=== PATIENT | male | born 1945 | race Caucasian/White ===

== ENCOUNTER 2022-05-13 14:38 | Outpatient (REF) | payer MEDICARE, SELFPAY ==
[2022-05-13 15:13] LABS: COVID-19 Test Positive (Negative)
== END 2022-05-13 14:39 | disposition home or self-care (01) ==
LOC: HO.LAB 14:38
PROVIDERS: Visit Provider Internal Medicine
DX: Z20.822 Contact with and (suspected) exposure to COVID-19 (principal)
CPT/HCPCS: 87635; C9803

== ENCOUNTER 2022-05-22 15:19 | Outpatient (REF) | payer MEDICARE, SELFPAY ==
[2022-05-22 16:20] LABS: COVID-19 Test Positive (Negative); IDNOW Serial# 16C4AD1C
== END 2022-05-22 15:20 | disposition home or self-care (01) ==
LOC: HO.LAB 15:19
PROVIDERS: Visit Provider Internal Medicine
DX: Z20.822 Contact with and (suspected) exposure to COVID-19 (principal)
CPT/HCPCS: 87635; C9803

== ENCOUNTER 2022-12-07 19:23 | Emergency (ER) | payer MEDICARE, SELFPAY ==
--- NOTE | ~2022-12-07 | XR_ITS ---
EXAMINATION: RIGHT ANKLE 2 VIEWS AND RIGHT FOOT 3 VIEWS CLINICAL INFORMATION: Pain status post injury COMPARISON: None TECHNIQUE: As above nonweightbearing FINDINGS: Notable soft tissue swelling laterally about the ankle. No underlying fracture. Ankle mortise anatomic. Subtalar joint intact. Acute nondisplaced fracture at the base of the fifth metatarsal bone which is intra-articular. No additional fractures. XR/XR ankle RT 2V IMPRESSION: Acute nondisplaced fracture base of the fifth metatarsal bone. Appearance is consistent with a peroneus brevis tendon avulsion injury.
--- NOTE | ~2022-12-07 | XR_ITS ---
EXAMINATION: RIGHT ANKLE 2 VIEWS AND RIGHT FOOT 3 VIEWS CLINICAL INFORMATION: Pain status post injury COMPARISON: None TECHNIQUE: As above nonweightbearing FINDINGS: Notable soft tissue swelling laterally about the ankle. No underlying fracture. Ankle mortise anatomic. Subtalar joint intact. Acute nondisplaced fracture at the base of the fifth metatarsal bone which is intra-articular. No additional fractures. XR/XR foot RT 2V IMPRESSION: Acute nondisplaced fracture base of the fifth metatarsal bone. Appearance is consistent with a peroneus brevis tendon avulsion injury.
--- NOTE | 2022-12-07 19:27 | ED.LOWEXIN ---
HPI - Extremity Injury (Lower) General Chief Complaint: Extremity Injury, Lower Stated Complaint: right foot inj Time Seen by Provider: 12/07/22 19:48 Source: patient Mode of arrival: ambulatory Limitations: no limitations History of Present Illness HPI Narrative: 77-year-old male with history of high cholesterol, BPH who presents to the emergency room with complaints of right-sided foot pain which happened from an injury last night. Patient reports he went to pick something up off the ground and lost his balance causing an inversion injury of his right foot. No head strike or loss consciousness. Since then patient reports pain over the foot which is worsened with weight-bearing. No weakness, numbness or tingling. MD complaint: ankle injury and foot injury Related Data Allergies Allergy/AdvReac Type Severity Reaction Status Date / Time Seasonal Allergies Allergy Runny Nose Verified 12/07/22 19:33 Review of Systems Review of Systems: Yes all other systems are reviewed and are negative Constitutional: Constitutional: Reports no additional constitutional complaints, Denies body ache(s), Denies chills, Denies fever(s), Denies headache(s) and Denies weakness Eyes: Eyes: Reports no additional eye complaints and Denies change in vision ENT: Reports system reviewed and no additional complaints, except as documented, Denies dizziness, Denies headache(s), Denies nasal congestion, Denies nasal discharge and Denies neck pain Cardiovascular: Cardiovascular: Reports no additional cardiovascular complaints, Denies chest pain, Denies leg edema and Denies dyspnea Respiratory: Respiratory: Reports no additional respiratory complaints, Denies cough and Denies dyspnea Gastrointestinal: Gastrointestinal: Reports no additional gastrointestinal complaints, Denies abdominal pain, Denies diarrhea, Denies nausea and Denies vomiting Genitourinary: Genitourinary: Denies urinary incontinence Musculoskeletal: Musculoskeletal: Reports no additional musculoskeletal complaints, Denies back pain, Reports arthralgias, Reports joint swelling, Denies neck pain, Denies numbness and Denies tingling Integumentary/Breasts: Skin/Breast: Reports system reviewed and no additional complaints, except as docu and Denies rash Neurologic: Reports system reviewed and no additional complaints, except as documented, Denies Abnormal speech present, Denies dizziness, Denies headache(s), Denies numbness, Denies tingling and Denies weakness [facility] Past Medical History Attestation statement: The following information was validated with the patient. Source: old records reviewed and nursing notes reviewed Social History Social History Advance Directives: No Advance Directives Information Provided: No Physical Exam Vital Signs: Vital Signs: Last Vital Signs Temp 98.2 F 12/07/22 20:27 Pulse 93 12/07/22 20:27 Resp 16 12/07/22 20:27 BP 124/73 12/07/22 20:27 Pulse Ox 95 12/07/22 20:27 O2 Del Method 12/07/22 20:27 BMI result Body Mass Index 19.3 Const: General: cooperative, healthy appearing, comfortable and no acute distress Orientation/consciousness: patient oriented x3 Limitations: no limitations HEENT: Head: Yes normal to inspection Ears: hearing grossly normal bilaterally General nose exam: Normal external nose present Face and sinus: Yes normal facial exam Mouth: Normal oral and palatal mucosa present Throat: Yes posterior oropharynx normal Eyes: General: appearance normal, both eyes and all related structures Pupils: Equal, round and reactive pupils present Neck: Neck: Yes normal visual inspection Chest: Chest palpation & inspection: normal inspection of the chest Resp: Effort & Inspection: normal respiratory effort Auscultation: clear to auscultation bilaterally Cardio: Rate: regular rate Rhythm: regular rhythm Peripheral pulses: Peripheral pulses 2+ throughout GI: Inspection: Yes normal to inspection Palpation (GI): Soft to palpation and nontender Auscultation: normal bowel sounds Back/Spine/Pelvis: Thoracic/Lumbar Spine: thoracic and lumbar spine normal to inspection Skin: General skin exam: no rashes or lesions noted Neuro: General: patient oriented x3, no focal motor deficits and normal sensation to monofilament Cranial nerves: Yes Equal, round and reactive pupils present Cognition (Neuro): normal cognition Speech: No Abnormal speech present Gait exam (Neuro): Normal gait present Motor exam (neuro): 5/5 motor strength present throughout Extrem: Other: Patient with ecchymosis, swelling, tenderness over the right 5th metatarsal at the base and over the lateral ankle. Full range of motion of the ankle and foot. Palpable DP and PT pulses. Sensation is intact distally. General: Yes normal to inspection Course Course Course Narrative: This is a rapid medical exam. Deferred additional HPI, ROS, PE to primary provider. 77 yo male with history of HLD, BPH, insomnia here with right ankle/foot pain. Patient report he lost his balance last night to avoid something on the ground but had an inversion injury of the right ankle/foot. No head strike or LOC. Now here with pain which is weight bearing. Will check x-rays of right foot and ankle. VSS Medical Decision Making Medical Decision Making MDM Narrative: 77-year-old male here with inversion injury of the right lower extremity which occurred last night during a fall. Patient with significant bruising and swelling over the 5th metatarsal on the right side. Will check x-rays to rule out fracture. 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 Discussed case with orthopedics on-call Pili who recommended walking boot with weight-bearing as tolerated Independent Interpretation I performed an independent interpretation of an: Plain X-Ray Interpretation: I independently reviewed the x-ray-right 5th metatarsal fracture at the base Radiology Impression Discussion of test interpretation with radiology: I have reviewed the radiologist's reading. Radiologist Impression: [address] [address] XRay Report Signed Patient: Josh Croft III MR#: [id number] : 1945 Acct:[id number] Age/Sex: 77 / M ADM Date: 12/07/22 Loc: HO.ED Attending Dr: Ordering Physician: Akiko Singh NP Date of Service: 12/07/22 Procedure(s): XR ankle RT 2V Accession Number(s): [id number] cc: Akiko Singh NP~ EXAMINATION: RIGHT ANKLE 2 VIEWS AND RIGHT FOOT 3 VIEWS CLINICAL INFORMATION: Pain status post injury? COMPARISON: None? TECHNIQUE: As above nonweightbearing? FINDINGS: Notable soft tissue swelling laterally about the ankle. No underlying fracture. Ankle mortise anatomic. Subtalar joint intact. Acute nondisplaced fracture at the base of the fifth metatarsal bone which is intra-articular. No additional fractures.? XR/XR ankle RT 2V IMPRESSION: Acute nondisplaced fracture base of the fifth metatarsal bone. Appearance is consistent with a peroneus brevis tendon avulsion injury. Procedures Procedure Narrative Procedure Narrative: Orthopedic walking boot Discharge Plan Discharge Clinical Impression: Closed fracture of fifth metatarsal bone Patient Disposition: Home, Self-Care Instructions: Foot Fracture in Adults (ED) Additional Instructions: Use the boot when doing any walking Elevate, ice Take Motrin or Tylenol if able for any pain Follow-up with orthopedic Referrals: [facility] Orthopedic Surgeons [Provider Group] - 1 week
[2022-12-07 19:29] VITALS: BP 105/72; PULSE 82; RESP 16; TEMP 36.8; O2SAT 99; BMI 19.3
--- OUTSIDE RECORDS SUMMARY | 2022-12-07 20:18 | XMS_ITS | Continuity of Care Document ---
:1945 Author Organization [facility] Adult Address [address] [place] [address]- Care Team Providers Name Role Phone Leesa MURILLO, Gomez Tenorio Primary Care Physician Encounter [facility] Date(s): 01/16/21 - 02/15/21 [facility] [address] [place] [address]- Referring Physician: Ave Gr[address] Allergies, Adverse Reactions, Alerts Substance Reaction Severity Status NKA Active Immunizations Given and Recorded Vaccine Date Status Refusal Reason SARS-CoV-2 (COVID-19) mRNA BNT-162b2 vac 12/13/20 Recorde d SARS-CoV-2 (COVID-19) mRNA BNT-162b2 vac 11/22/20 Recorde d Influenza Virus Vaccine (oldterm) 07/07/20 Recorded Influenza Virus Vaccine (oldterm) 08/20/19 Recorded Influenza Virus Vaccine (oldterm) 06/20/18 Recorded zoster vaccine, inactivated 04/07/19 Recorded Zoster Vaccine Live 01/06/19 Recorded influenza virus vaccine, inactivated 08/05/17 Recorded influenza virus vaccine, inactivated 07/13/16 Recorded influenza virus vaccine, inactivated 08/03/15 Recorded pneumococcal 13-valent vaccine 10/03/15 Given Tetanus Toxoid 12/08/13 Recorded Zostavax (oldterm) 12/02/12 Recorded pneumococcal 23-valent vaccine 01/03/12 Recorded Medications Acidophilus Probiotic Blend oral capsule 1 capsule, By Mouth, Daily, 0 Refills, Maintenance, 10/03/15 15:28:16 Start Date: 10/03/15 Status: Orderedcetirizine 10 mg oral capsule 1 capsule = 10 mg, By Mouth, Daily, PRN for allergy symptoms, # 40 capsule, 0 Refills, Maintenance, 03/16/20 11:13:00 EDT, Capsule Start Date: 03/16/20 Status: Ordereddiclofenac 3% topical gel 1 application, Topically, 2 times a day, # 100 Gm, 1 Refills, Maintenance, 01/05/21 9:32:00 EDT, Gel, [facility] # [facility], Partial fill upon patient request if the prescription is for a schedule II opioid drug., 1 application Topically 2 times a day,... Start Date: 01/05/21 Status: OrderedDiphenhist 25 mg oral tablet 1 tablet = 25 mg, By Mouth, Daily at bedtime, PRN for insomnia, # 30 tablet, 0 Refills, Maintenance,07/02/16 9:08:20, Tablet Start Date: 07/02/16 Status: Orderedfamotidine 20 mg oral tablet 20 mg, 1, tablet, By Mouth, 2 times a day, # 60 tablet, Refills 1, Tot. Refills 1, Maintenance, 01/05/21 9:31:00 EDT, Route to Pharmacy Electronically, [facility] # [facility], Partial fill upon patient request if the prescription is for a schedule II opi... Start Date: 01/05/21 Status: OrderedFluticasone Nasal Daily, 0 Refills, Maintenance, 10/03/15 12:00:15 Start Date: 10/03/15 Status: OrderedGlucosamine By Mouth, 0 Refills, Maintenance, 10/03/15 15:29:17 Start Date: 10/03/15 Status: OrderedLORazepam 0.5 mg oral tablet 1 tablet = 0.5 mg, By Mouth, Daily at bedtime, PRN INSOMNIA, # 30 tablet, 5 Refills, Soft Stop, 09/27/20 8:00:00 EST, [facility], 176.5, cm, 09/25/20 15:01:00 EST, Height Start Date: 09/27/20 Status: Orderedmeloxicam 15 mg oral tablet 1 tablet = 15 mg, By Mouth, Daily, # 14 tablet, 0 Refills, Maintenance, 01/05/21 9:31:00 EDT, Tablet, [facility] # [facility], Partial fill upon patient request if the prescription is for a schedule II opioid drug., 176.5, cm, 01/05/21 8:29:00 EDT, Height Start Date: 01/05/21 Stop Date: 01/19/21 Status: OrderedMultivitamin By Mouth, Daily, 0 Refills, Maintenance, 10/03/15 15:29:03 Start Date: 10/03/15 Status: Orderedpravastatin 40 mg oral tablet 1 tablet = 40 mg, By Mouth, Daily, # 90 tablet, 3 Refills, Maintenance, 09/25/20 15:31:00 EST, Tablet, [facility], 176.5, cm, 09/25/20 15:01:00 EST, Height Start Date: 09/25/20 Status: OrderedRestasis Every 12 hours, 0 Refills, Maintenance, 09/25/20 15:26:00 EST, Partial fill upon patient request if the prescription is for a schedule II opioid drug. Start Date: 09/25/20 Status: OrderedSystane Eyes, Both, 2 times a day, 0 Refills, Maintenance, 10/03/15 15:27:34 Start Date: 10/03/15 Status: OrderedVitamin C 500 mg oral tablet 1 tablet = 500 mg, By Mouth, Daily, 0 Refills, Maintenance, 09/25/20 15:28:00 EST, Partial fill uponpatient request if the prescription is for a schedule II opioid drug. Start Date: 09/25/20 Status: OrderedVitamin D3 400 intl units oral capsule 1 capsule = 400 International_Units, By Mouth, Daily, 0 Refills, Maintenance, 10/03/15 15:28:48 Start Date: 10/03/15 Status: Ordered Problem List Condition Effective Dates Status Health Status Informant Multiple abrasions(Confirmed) Active Actinic keratosis(Confirmed)1 Active Allergic rhinitis(Confirmed) Active Osteoarthritis cervical Active spine(Confirmed) Chronic low back pain(Confirmed) Active Dry eyes(Confirmed)2 Active Dermatitis(Confirmed) Active Family history of prostate cancer in Active father(Confirmed) H/O insomnia(Confirmed) Active H/O colonoscopy(Confirmed)3, 4 Active Hypercholesteremia(Confirmed) Active Incomplete right bundle branch Active block(Confirmed) Jaw pain(Confirmed) Active 1sees dr. sanchez yearly for skin exams.2Sees Dr. Prabhakar [id number]; repeat optional based on patient's age per Dr. [id number] 2005 normal, repeat 2014 Social History Social History Type Response Smoking Status Never smoker entered on: 03/07/16 Sex
--- OUTSIDE RECORDS SUMMARY | 2022-12-07 20:18 | XMS_ITS | Continuity of Care Document ---
:1945 Author Organization [facility] Adult Address [address] [place] [address]- Care Team Providers Name Role Phone Leesa MURILLO, Gomez Tenorio Primary Care Physician Encounter [facility] Date(s): 04/18/20 - 04/25/20 [facility] [address] [place] [address]- [facility] Attending Physician: Trell Lewis MD Allergies, Adverse Reactions, Alerts Substance Reaction Severity Status NKA Active Immunizations Given and Recorded Vaccine Date Status Refusal Reason Influenza Virus Vaccine (oldterm) 08/20/19 Recorded Influenza [...] 11:13:00 EDT, Capsule Start Date: 03/16/20 Status: OrderedDiphenhist 25 mg oral tablet 1 tablet = 25 mg, By Mouth, Daily at bedtime, PRN for insomnia, # 30 tablet, 0 Refills, Maintenance,07/02/16 9:08:20, Tablet Start Date: 07/02/16 Status: OrderedFluticasone Nasal Daily, 0 Refills, Maintenance, 10/03/15 12:00:15 Start Date: 10/03/15 Status: OrderedGlucosamine By Mouth, 0 Refills, Maintenance, 10/03/15 15:29:17 Start Date: 10/03/15 Status: OrderedLORazepam 0.5 mg oral tablet See Instructions, # 30 Unknown, Refills 5 Tot. Refills 5, TAKE 1 TABLET BY MOUTH AT BEDTIME NEEDED FOR SLEEP., [facility] Start Date: 08/04/19 Status: OrderedMultivitamin By Mouth, Daily, 0 Refills, Maintenance, 10/03/15 15:29:03 Start Date: 10/03/15 Status: Orderedpravastatin 40 mg oral tablet 1 tablet = 40 mg, By Mouth, Daily, # 90 tablet, 3 Refills, Maintenance, 02/15/20 10:37:00 EDT, Tablet, [facility], 176.5, cm, 09/13/19 11:31:00 EST, Height Start Date: 02/15/20 Status: OrderedSystane Eyes, Both, 2 times a day, 0 Refills, Maintenance, 10/03/15 15:27:34 Start Date: 10/03/15 Status: OrderedVitamin D3 400 intl units oral [...] sanchez yearly for skin exams.2Sees Dr. Prabhakar [id number]; repeat optional based on patient's age per Dr. [id number] 2005 normal, repeat 2015 Vital Signs Most recent to oldest [Reference Range]: 1 Height 176.5 cm (04/18/20 9:30 AM) Weight 58.4 kg (04/18/20 9:30 AM) Oxygen Saturation [94-100 %] 98 % (04/18/20 9:30 AM) Pulse Rate [55-90 bpm] 78 bpm (04/18/20 9:30 AM) Body Mass Index [18.5-24.99] 18.75 (04/18/20 9:30 AM) Blood Pressure [90-138/55-84 mm Hg] 110/70 mm Hg (04/18/20 9:30 AM) Temperature [96.8-100.4 DegF] 97.5 DegF (04/18/20 9:30 AM) Mode of Delivery (Oxygen) Room air (04/18/20 9:30 AM) Blood pressure sites Arm, left (04/18/20 9:30 AM) Temperature Route Oral (04/18/20 9:30 AM) Weight Obtained Via Standing scale (04/18/20 9:30 AM) Social History Social History Type Response Smoking Status Never smoker entered on: 03/07/16 Sex
--- OUTSIDE RECORDS SUMMARY | 2022-12-07 20:18 | XMS_ITS | Continuity of Care Document ---
:1945 Author Organization [facility] Address [address] [place] [id number]- Care Team Providers Name Role Phone Gomez Landers MD Primary Care Physician Encounter [facility] Date(s): 05/04/21 - 06/03/[address] [address] Attending Physician: Kamlesh Ayon Admitting Physician: AdmtrKamlesh Referring Physician: Admtr, Ar8 Allergies, Adverse Reactions, Alerts Substance Reaction Severity [...] 1 Refills, Maintenance, 01/05/21 9:32:00 EDT, Gel, [facility], Partial fill upon patient [...] 01/05/21 9:31:00 EDT, Route to Pharmacy Electronically, [facility] # [facility], Partial fill upon patient [...] 5 Refills, Soft Stop, 09/27/20 8:00:00 EST, [facility] # [facility], 176.5, cm, 09/25/20 15:01:00 EST, Height Start Date: 09/27/20 Status: Orderedmeloxicam 15 mg oral tablet 1 tablet = 15 mg, By Mouth, Daily, # 14 tablet, 0 Refills, Maintenance, 01/05/21 9:31:00 EDT, Tablet, [facility] # [facility], Partial fill upon patient request if the prescription is for a schedule II opioid drug., 176.5, cm, 01/05/21 8:29:00 EDT, Height Start Date: 01/05/21 Stop Date: 01/19/21 Status: OrderedMetamucil 400 mg oral capsule 5 capsule = 2,000 mg, By Mouth, 4 times a day, PRN as needed for constipation, with at least 8 ounces of water, # 160 capsule, 0 Refills, Maintenance, 03/27/21 11:25:00 EDT, Capsule, Partial fill upon patient request if the prescription is for a sched... Start Date: 03/27/21 Status: OrderedMultivitamin By Mouth, Daily, 0 Refills, [...] Maintenance, 10/03/15 15:27:34 Start Date: 10/03/15 Status: Orderedtamsulosin 0.4 mg oral capsule 0.4 mg, 1, capsule, By Mouth, Daily, # 30 capsule, Refills 0, Maintenance, 02/27/21 8:35:00 EDT, Partial fill upon patient request if the prescription is for a schedule II opioid drug. Start Date: 02/27/21 Status: OrderedVitamin C 500 mg oral tablet [...] Active spine(Confirmed) Chronic low back pain(Confirmed) Active Constipation(Confirmed) Active Dry eyes(Confirmed)2 Active Dermatitis(Confirmed) Active Family history of prostate cancer in Active father(Confirmed) H/O insomnia(Confirmed) Active History of BPH(Confirmed) Active H/O colonoscopy(Confirmed)3, 4 Active Hypercholesteremia(Confirmed) Active Incomplete right bundle branch Active block(Confirmed) Jaw pain(Confirmed) Active Left sided sciatica(Confirmed) Active Subclinical hypothyroidism(Confirmed) Active 1sees dr. sanchez yearly for skin exams.2Sees Dr. Prabhakar [id number]; repeat optional based on patient's age per Dr. [id number] 2004 normal, repeat 2014 Social History Social History Type Response Smoking Status Never smoker entered on: 03/07/16 Sex
--- OUTSIDE RECORDS SUMMARY | 2022-12-07 20:18 | XMS_ITS | Continuity of Care Document ---
:1945 Author Organization [facility] Adult Address [address] [place] [address]- Care Team Providers Name Role Phone Gomez Landers MD Primary Care Physician Encounter [facility] Date(s): 05/10/22 - 06/09/22 [facility] [address] [place] [address]- Allergies, Adverse Reactions, Alerts No Known Allergies Immunizations Given and Recorded Vaccine Date Status Refusal Reason SARS-CoV-2 mRNA ([id number]) vax 02/14/22 Recorde d SARS-CoV-2 (COVID-19) mRNA BNT-162b2 vac 07/15/21 Recorde d SARS-CoV-2 (COVID-19) mRNA BNT-162b2 vac 12/13/20 Recorde d SARS-CoV-2 (COVID-19) mRNA BNT-162b2 vac 11/22/20 Recorde d influenza virus vaccine, inactivated 06/26/21 Recorded influenza virus vaccine, inactivated 08/05/17 Recorded influenza virus vaccine, inactivated 07/13/16 Recorded influenza virus vaccine, inactivated 08/03/15 Recorded Influenza Virus Vaccine (oldterm) 07/07/20 Recorded Influenza Virus Vaccine (oldterm) 08/20/19 Recorded Influenza Virus Vaccine (oldterm) 06/20/18 Recorded zoster vaccine, inactivated 04/07/19 Recorded Zoster Vaccine Live 01/06/19 Recorded pneumococcal 13-valent vaccine 10/03/15 Given Tetanus Toxoid 12/08/13 Recorded tetanus/diphtheria/pertussis, acel(Tdap) 12/08/13 Recorde d Zostavax (oldterm) 12/02/12 Recorded pneumococcal 23-valent vaccine 01/03/12 Recorded Medications Acidophilus Probiotic Blend oral capsule 1 capsule, By Mouth, Daily, 0 Refills, Maintenance, 10/03/15 15:28:16 Start Date: 10/03/15 Status: Orderedcetirizine 10 mg oral capsule 1 capsule = 10 mg, By Mouth, Daily, PRN for allergy symptoms, # 40 capsule, 0 Refills, Maintenance, 03/16/20 11:13:00 EDT, Capsule Start Date: 03/16/20 Status: OrdereddiphenhydrAMINE 12.5 mg oral tablet, chewable 1 tablet = 12.5 mg, By Mouth, Daily at bedtime, PRN for insomnia, # 60 tablet, 0 Refills, Maintenance, 10/26/21 13:50:00 EST, Chew Tablet, Partial fill upon patient request if the prescription is for aschedule II opioid drug. Start Date: 10/26/21 Status: OrderedFluticasone Nasal Daily, 0 Refills, Maintenance, 10/03/15 12:00:15 Start Date: 10/03/15 Status: OrderedGlucosamine By Mouth, 0 Refills, Maintenance, 10/03/15 15:29:17 Start Date: 10/03/15 Status: OrderedLORazepam 0.5 mg oral tablet 1 tablet = 0.5 mg, By Mouth, Daily at bedtime, PRN INSOMNIA, # 30 tablet, 5 Refills, Soft Stop, 02/20/22 10:58:00 EDT, [facility], 176.5, cm, 10/26/21 13:28:00 EST, Height Start Date: 02/20/22 Status: OrderedMetamucil 400 mg oral capsule 5 [...] Maintenance, 10/03/15 15:29:03 Start Date: 10/03/15 Status: OrderedPaxlovid 150 mg-100 mg (150 mg-100 mg Dose) oral tablet See Instructions, Take 3 tablet twice a day for 5 days, # 30 capsule, 0 Refills, Maintenance, 05/14/22 13:36:00 EDT, [facility], Partial fill upon patient request if the prescription is for a schedule II opioid drug., 176.5, cm, 04/05/22 10:5... Start Date: 05/14/22 Status: Orderedpravastatin 40 mg oral tablet 1 tablet = 40 mg, By Mouth, Daily, # 90 tablet, 1 Refills, Maintenance, 12/04/21 17:00:00 EST, Tablet, [facility], 176.5, cm, 10/26/21 13:28:00 EST, Height Start Date: 12/04/21 Status: OrderedRestasis Every 12 hours, 0 Refills, [...] opioid drug. Start Date: 02/27/21 Status: OrderedVitamin D3 400 intl units oral capsule 1 capsule = 400 International_Units, By Mouth, Daily, 0 Refills, Maintenance, 10/03/15 15:28:48 Start Date: 10/03/15 Status: Ordered Problem List Condition Effective Dates Status Health Status Informant Multiple abrasions(Confirmed) Active Actinic keratosis(Confirmed)1 Active Allergic rhinitis(Confirmed) Active Osteoarthritis cervical Active spine(Confirmed) Chronic low back pain(Confirmed) Active Constipation(Confirmed) Active COVID-19 virus infection(Confirmed) Active Dry eyes(Confirmed)2 Active Dermatitis(Confirmed) Active Family history of prostate cancer in Active father(Confirmed) H/O insomnia(Confirmed) Active History of BPH(Confirmed) Active H/O colonoscopy(Confirmed)3, 4 Active Hypercholesteremia(Confirmed) Active Incomplete right bundle branch Active block(Confirmed) Jaw pain(Confirmed) Active Left sided sciatica(Confirmed) Active Subclinical hypothyroidism(Confirmed) Active 1sees dr. sanchez yearly for skin exams.2Sees Dr. Prabhakar [id number]; repeat optional based on patient's age per Dr. [id number] 2004 normal, repeat 2014 Social History Social History Type Response Smoking Status Never smoker entered on: 03/07/16 Sex
--- OUTSIDE RECORDS SUMMARY | 2022-12-07 20:18 | XMS_ITS | Continuity of Care Document ---
:1945 Author Organization [facility] Adult Address [address] [place] [address]- Care Team Providers Name Role Phone Leesa MURILLO, Gomez Tenorio Primary Care Physician Encounter [facility] Date(s): 07/04/22 - 08/03/22 [facility] Adult [address] [place] [address]- Allergies, Adverse Reactions, Alerts No Known Allergies Immunizations Given and Recorded Vaccine Date Status Refusal Reason [id number] 12y+ bivalent booster vax 07/19/22 Recorde d SARS-CoV-2 mRNA (kttdazb-gtyd-haabl) vax 02/14/22 Recorde d SARS-CoV-2 (COVID-19) mRNA [...] 5 Refills, Soft Stop, 02/20/22 10:58:00 EDT, [facility], 176.5, cm, 10/26/21 13:28:00 [...] Status: Orderedpravastatin 40 mg oral tablet 1 tablet, By Mouth, Daily, # 90 tablet, 1 Refills, Maintenance, 06/27/22 20:41:00 EDT, [facility], 176.5, cm, 05/14/22 13:37:00 EDT, Height Start Date: 06/27/22 Status: OrderedRestasis Every 12 hours, 0 Refills, [...] Date: 10/03/15 Status: Ordered Problem List Condition Confirmation Course Effective Status Health Informa nt Dates Status Multiple abrasions Confirmed Active Actinic keratosis1 Confirmed Active Allergic rhinitis Confirmed Active Osteoarthritis cervical Confirmed Active spine Chronic low back pain Confirmed Active Constipation Confirmed Active COVID-19 virus Confirmed Active infection Dry eyes2 Confirmed Active Dermatitis Confirmed Active Family history of Confirmed Active prostate cancer in father H/O insomnia Confirmed Active History of BPH Confirmed Active H/O colonoscopy3, 4 Confirmed Active Hypercholesteremia Confirmed Active 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 sanchez yearly for skin exams.2Sees Dr. Prabhakar [id number]; repeat optional based on patient's age per Dr. HillDaffpuvc8Lwmaulgpxod 2004 normal, repeat 2014 Social History Social History Type Response Smoking Status Never smoker entered on: 03/07/16 Sex Patient Care team information PersonnelName: Leesa MURILLO, Gomez Tenorio Address: Address: [address] [place] [id number]
--- OUTSIDE RECORDS SUMMARY | 2022-12-07 20:18 | XMS_ITS | Continuity of Care Document ---
:1945 Author Organization [facility] Adult Address [address] [place] [address]- Care Team Providers Name Role Phone Leesa MURILLO, Gomez Tenorio Primary Care Physician Encounter [facility] [place] Date(s): 04/18/20 - 05/18/20 [facility] Adult [address] [place] [address]- [facility] Attending Physician: Kamlesh Ayon Admitting Physician: AdmtrKamlesh Referring Physician: Admtr ArBenson Allergies, Adverse Reactions, Alerts Substance Reaction Severity [...] sanchez yearly for skin exams.2Sees Dr. Prabhakar [id number]; repeat optional based on patient's age per Dr. HillUzbcvejp3Qmcuhqcexvq 2004 normal, repeat 2014 Social History Social History Type Response Smoking Status Never smoker entered on: 03/07/16 Sex
--- OUTSIDE RECORDS SUMMARY | 2022-12-07 20:18 | XMS_ITS | Continuity of Care Document ---
:1945 Author Organization [facility] Adult Address [address] [place] [address]- Care Team Providers Name Role Phone Gomez Landers MD Primary Care Physician Encounter [facility] [place] Date(s): 09/25/20 - 10/02/20 [facility] Adult [address] [place] [address]- Encounter Diagnosis Actinic keratosis (Discharge Diagnosis) - 09/25/20 Hypercholesteremia (Discharge Diagnosis) - 09/25/20 Dry eyes (Discharge Diagnosis) - 09/25/20 Family history of prostate cancer in father (Discharge Diagnosis) - 09/25/20 Attending Physician: Gomez Landers MD Allergies, Adverse Reactions, Alerts Substance Reaction Severity Status NKA Active Immunizations Given and Recorded Vaccine Date Status Refusal Reason Influenza Virus Vaccine (oldterm) 07/07/20 Recorded Influenza [...] 5 Refills, Soft Stop, 09/27/20 8:00:00 EST, [facility], 176.5, cm, 09/25/20 15:01:00 EST, Height Start Date: 09/27/20 Status: OrderedMultivitamin By Mouth, Daily, 0 Refills, [...] sanchez yearly for skin exams.2Sees Dr. Prabhakar [id number]; repeat optional based on patient's age per Dr. HillZucuhqrt3Zetlukiatlu 2004 normal, repeat 2014 Diagnosis Diagnosis Type Effective Health Clinical Informant Dates Status Service Actinic keratosis Discharge 09/25/20 Diagnosis Hypercholesteremia Discharge 09/25/20 Diagnosis Dry eyes Discharge 09/25/20 Diagnosis Family history of Discharge 09/25/20 prostate cancer in Diagnosis father Vital Signs Most recent to oldest [Reference Range]: 1 Height 176.5 cm (09/25/20 3:01 PM) Weight 59.3 kg (09/25/20 3:01 PM) Oxygen Saturation [94-100 %] 98 % (09/25/20 3:01 PM) Pulse Rate [55-90 bpm] 65 bpm (09/25/20 3:01 PM) Body Mass Index [18.5-24.99] 19.04 (09/25/20 3:01 PM) Blood Pressure [90-138/55-84 mm Hg] 82/52 mm Hg *L* (09/25/20 3:01 PM) Mode of Delivery (Oxygen) Room air (09/25/20 3:01 PM) Blood pressure sites Arm, left (09/25/20 3:01 PM) Weight Obtained Via Standing scale (09/25/20 3:01 PM) Social History Social History Type Response Smoking Status Never smoker entered on: 03/07/16 Sex
--- OUTSIDE RECORDS SUMMARY | 2022-12-07 20:18 | XMS_ITS | Continuity of Care Document ---
:1945 Author Organization [facility] Adult Address [address] [place] [address]- Care Team Providers Name Role Phone Gomez Landers MD Primary Care Physician Encounter [facility] [place] Date(s): 10/15/22 - 11/14/22 [facility] Adult [address] [place] [address]- Allergies, Adverse Reactions, Alerts No Known Allergies Immunizations Given and Recorded Vaccine Date Status Refusal Reason influenza virus vaccine, inactivated 08/08/22 Recorded influenza virus vaccine, inactivated 06/26/21 Recorded influenza virus vaccine, inactivated 06/24/20 Recorded influenza virus vaccine, inactivated 08/16/19 Recorded influenza virus vaccine, inactivated 08/14/18 Recorded influenza virus vaccine, inactivated 08/05/17 Recorded influenza virus vaccine, inactivated 07/21/17 Recorded influenza virus vaccine, inactivated 07/13/16 Recorded influenza virus vaccine, inactivated 08/03/15 Recorded influenza virus vaccine, inactivated 07/26/15 Recorded [id number] 12y+ bivalent booster vax 07/26/22 Recorde d [id number]-[id number]-[id number] 12y+ bivalent booster vax 07/19/22 Recorde d SARS-CoV-2 mRNA (uznityl-nwvd-zlevn) vax 02/14/22 Recorde d SARS-CoV-2 (COVID-19) mRNA BNT-162b2 vac 07/15/21 Recorde d SARS-CoV-2 (COVID-19) mRNA BNT-162b2 vac 12/13/20 Recorde d SARS-CoV-2 (COVID-19) mRNA BNT-162b2 vac 11/22/20 Recorde d Influenza Virus Vaccine (oldterm) 07/07/20 Recorded Influenza Virus Vaccine (oldterm) 08/20/19 Recorded Influenza Virus Vaccine (oldterm) 06/20/18 Recorded zoster vaccine, inactivated 06/18/19 Recorded zoster vaccine, inactivated 04/07/19 Recorded zoster vaccine, inactivated 01/29/19 Recorded Zoster Vaccine Live 01/06/19 Recorded pneumococcal 13-valent vaccine 10/03/15 Given Tetanus Toxoid 12/08/13 Recorded tetanus/diphtheria/pertussis, acel(Tdap) 12/08/13 Recorde d Zostavax (oldterm) 12/02/12 Recorded pneumococcal 23-valent vaccine 01/03/12 Recorded Medications Acidophilus Probiotic Blend oral capsule 1 capsule, By Mouth, Daily, 0 Refills, Maintenance, 10/03/15 15:28:16 Start Date: 10/03/15 Status: OrdereddiphenhydrAMINE 25 mg oral tablet 1 tablet = 25 mg, By Mouth, Daily at bedtime, PRN for insomnia, # 30 tablet, 0 Refills, Maintenance,10/09/22 11:15:00 EST, Tablet, Partial fill upon patient request if the prescription is for a schedule II opioid drug. Start Date: 10/09/22 Status: OrderedFluticasone Nasal Daily, 0 Refills, Maintenance, 10/03/15 12:00:15 Start Date: 10/03/15 Status: OrderedGlucosamine By Mouth, 0 Refills, Maintenance, 10/03/15 15:29:17 Start Date: 10/03/15 Status: OrderedLORazepam 0.5 mg oral tablet 1 tablet = 0.5 mg, By Mouth, Daily at bedtime, PRN INSOMNIA, # 30 tablet, 5 Refills, Soft Stop, 10/02/22 12:08:00 EST, [facility], 176.5, cm, 07/17/22 10:58:00 EDT, Height Start Date: 10/02/22 Status: OrderedMetamucil 400 mg oral capsule 5 [...] sanchez yearly for skin exams.2Sees Dr. Prabhakar [id number]; repeat optional based on patient's age per Dr. HillNlqluygz9Fovlxwqhzxn 2004 normal, repeat 2014 Social History Social History Type Response Smoking Status Never smoker entered on: 03/07/16 Sex Patient Care team information Care Team PersonnelName: Leesa MURILLO, Gomez Tenorio Position: [facility] Primary Care Physician Member Role: PCP Address: Address: [address] [place] [address]- Care Team Related PersonsName: SABA CALLCY Address: home [address] [place] [address]
--- OUTSIDE RECORDS SUMMARY | 2022-12-07 20:18 | XMS_ITS | Continuity of Care Document ---
:1945 Author Organization [facility] Adult Address [address] [place] [address]- Care Team Providers Name Role Phone Gomez Landers MD Primary Care Physician Encounter [facility] [place] Date(s): 09/28/21 - 10/28/21 [facility] Adult [address] [place] [address]- Allergies, Adverse Reactions, Alerts Substance Reaction Severity Status NKA Active Immunizations Given and Recorded Vaccine Date Status Refusal Reason SARS-CoV-2 (COVID-19) mRNA BNT-162b2 vac 07/15/21 Recorde [...] Refills, Soft Stop, 09/27/20 8:00:00 EST, [facility], 176.5, cm, 09/25/20 15:01:00 EST, Height Start Date: 09/27/20 Status: OrderedMetamucil 400 mg oral capsule 5 [...] sanchez yearly for skin exams.2Sees Dr. Prabhakar [id number]; repeat optional based on patient's age per Dr. HillVolpeeij4Quiwbcsrdao 2004 normal, repeat 2014 Social History Social History Type Response Smoking Status Never smoker entered on: 03/07/16 Sex
--- OUTSIDE RECORDS SUMMARY | 2022-12-07 20:18 | XMS_ITS | Continuity of Care Document ---
:1945 Author Organization [facility] Adult Address [address] [place] [address]- Care Team Providers Name Role Phone Gomez Landers MD Primary Care Physician Encounter [facility] [place] Date(s): 03/27/21 - 04/03/21 [facility] Adult [address] [place] [address]- Encounter Diagnosis Hypercholesteremia (Discharge Diagnosis) - 03/27/21 H/O insomnia (Discharge Diagnosis) - 03/27/21 Attending Physician: Gomez Landers MD Allergies, Adverse [...] 1 Refills, Maintenance, 01/05/21 9:32:00 EDT, Gel, [facility], Partial fill [...] 01/05/21 9:31:00 EDT, Route to Pharmacy Electronically, [facility], Partial fill [...] 0 Refills, Maintenance, 01/05/21 9:31:00 EDT, Tablet, [facility], Partial fill [...] sanchez yearly for skin exams.2Sees Dr. Prabhakar [id number]; repeat optional based on patient's age per Dr. HillIoinmfxq0Vdzikvemayt 2004 normal, repeat 2014 Diagnosis Diagnosis Type Effective Dates Health Clinical Infor mant Status Service Hypercholesteremia Discharge 03/27/21 Diagnosis H/O insomnia Discharge 03/27/21 Diagnosis Vital Signs Most recent to oldest [Reference Range]: 1 Height 176.5 cm (03/27/21 10:58 AM) Weight 60.9 kg (03/27/21 10:58 AM) Oxygen Saturation [94-100 %] 98 % (03/27/21 10:58 AM) Pulse Rate [55-90 bpm] 84 bpm (03/27/21 10:58 AM) Body Mass Index [18.5-24.99] 19.55 (03/27/21 10:58 AM) Blood Pressure [90-138/55-84 mm Hg] 78/42 mm Hg *L* (03/27/21 10:58 AM) Mode of Delivery (Oxygen) Room air (03/27/21 10:58 AM) Blood pressure sites Arm, left (03/27/21 10:58 AM) Weight Obtained Via Standing scale (03/27/21 10:58 AM) Social History Social History Type Response Smoking Status Never smoker entered on: 03/07/16 Sex
--- OUTSIDE RECORDS SUMMARY | 2022-12-07 20:18 | XMS_ITS | Continuity of Care Document ---
:1945 Author Organization [facility] Adult Address [address] [place] [address]- Care Team Providers Name Role Phone Gomez Landers MD Primary Care Physician Encounter [facility] [place] Date(s): 04/05/22 - 04/12/22 [facility] Adult [address] [place] [address]- Encounter Diagnosis H/O insomnia (Discharge Diagnosis) - 04/05/22 Constipation (Discharge Diagnosis) - 04/05/22 Hypercholesteremia (Discharge Diagnosis) - 04/05/22 History of BPH (Discharge Diagnosis) - 04/05/22 Osteoarthritis cervical spine (Discharge Diagnosis) - 04/05/22 Left sided sciatica (Discharge Diagnosis) - 04/05/22 Attending Physician: Gomez Landers MD Allergies, Adverse Reactions, Alerts No Known Allergies Immunizations Given and Recorded Vaccine Date Status Refusal Reason SARS-CoV-2 mRNA (pzzhuup-vzfn-zytlo) vax 02/14/22 Recorde d SARS-CoV-2 (COVID-19) mRNA [...] 5 Refills, Soft Stop, 02/20/22 10:58:00 EDT, [facility], 176.5, cm, 10/26/21 13:28:00 [...] sanchez yearly for skin exams.2Sees Dr. Prabhakar [id number]; repeat optional based on patient's age per Dr. HillPejrbwvs3Yhwmdhdccsv 2004 normal, repeat 2014 Diagnosis Diagnosis Type Effective Health Clinical Informant Dates Status Service H/O insomnia Discharge 04/05/22 Diagnosis Constipation Discharge 04/05/22 Diagnosis Hypercholesteremia Discharge 04/05/22 Diagnosis History of BPH Discharge 04/05/22 Diagnosis Osteoarthritis cervical Discharge 04/05/22 spine Diagnosis Left sided sciatica Discharge 04/05/22 Diagnosis Vital Signs Most recent to oldest [Reference Range]: 1 Height 176.5 cm (04/05/22 10:52 AM) Weight 61.3 kg (04/05/22 10:52 AM) Body Mass Index [18.5-24.99] 19.68 (04/05/22 10:52 AM) Blood Pressure [90-138/55-84 mm Hg] 86/50 mm Hg *L* (04/05/22 10:52 AM) Mode of Delivery (Oxygen) Room air (04/05/22 10:52 AM) Blood pressure sites Arm, left (04/05/22 10:52 AM) Weight Obtained Via Standing scale (04/05/22 10:52 AM) Social History Social History Type Response Smoking Status Never smoker entered on: 03/07/16 Sex
--- OUTSIDE RECORDS SUMMARY | 2022-12-07 20:18 | XMS_ITS | Continuity of Care Document ---
:1945 Author Organization [facility] Adult Address [address] [place] [address]- Care Team Providers Name Role Phone Gomez Landers MD Primary Care Physician [place] [facility] [place](s): 05/14/22 - 06/13/22 [facility] Adult [address] [place] [address]- Attending Physician: Admtr, Ar8 Admitting Physician: Admtr, Ar8 Referring Physician: Admtr, Ar8 Allergies, Adverse Reactions, Alerts No Known Allergies Immunizations Given and Recorded Vaccine Date Status Refusal Reason SARS-CoV-2 mRNA (xaggfvj-mtpm-suizw) vax 02/14/22 Recorde d SARS-CoV-2 (COVID-19) mRNA [...] 5 Refills, Soft Stop, 02/20/22 10:58:00 EDT, [facility], 176.5, cm, 10/26/21 [...] capsule, 0 Refills, Maintenance, 05/14/22 13:36:00 EDT, [facility], Partial fill [...] sanchez yearly for skin exams.2Sees Dr. Prabhakar [id number]; repeat optional based on patient's age per Dr. HillBokowipa2Tcmdurxnwgj 2004 normal, repeat 2014 Social History Social History Type Response Smoking Status Never smoker entered on: 03/07/16 Sex Care Team PersonnelName: Leesa MURILLO, Gomez Tenorio Address: [address] [place] [id number]-
--- OUTSIDE RECORDS SUMMARY | 2022-12-07 20:18 | XMS_ITS | Continuity of Care Document ---
:1945 Author Organization [facility] Adult Address [address] [place] [address]- Care Team Providers Name Role Phone Leesa MURILLO, Gomez Tenorio Primary Care Physician Encounter [facility] [place] Date(s): 04/05/21 - 05/05/21 [facility] Adult [address] [place] [address]- Allergies, Adverse Reactions, Alerts Substance Reaction Severity [...] 1 Refills, Maintenance, 01/05/21 9:32:00 EDT, Gel, [facility], Partial fill upon [...] 01/05/21 9:31:00 EDT, Route to Pharmacy Electronically, [facility], Partial fill upon [...] Soft Stop, 09/27/20 8:00:00 EST, [facility], 176.5, cm, 09/25/20 15:01:00 EST, Height Start Date: 09/27/20 Status: Orderedmeloxicam 15 mg oral tablet 1 tablet = 15 mg, By Mouth, Daily, # 14 tablet, 0 Refills, Maintenance, 01/05/21 9:31:00 EDT, Tablet, [facility], Partial fill upon [...] sanchez yearly for skin exams.2Sees Dr. Prabhakar [id number]; repeat optional based on patient's age per Dr. HillSzieorzx7Mtkbqlvrywr 2004 normal, repeat 2014 Social History Social History Type Response Smoking Status Never smoker entered on: 03/07/16 Sex
--- OUTSIDE RECORDS SUMMARY | 2022-12-07 20:18 | XMS_ITS | Continuity of Care Document ---
:1945 Author Organization [facility] Adult Address [address] [place] [address]- Care Team Providers Name Role Phone Gomez Landers MD Primary Care Physician Encounter [facility] [place] Date(s): 10/24/21 - 11/23/21 [facility] Adult [address] [place] [address]- Allergies, Adverse Reactions, Alerts No Known Allergies [...] sanchez yearly for skin exams.2Sees Dr. Prabhakar [id number]; repeat optional based on patient's age per Dr. HillVcglorja2Rioxduitgow 2004 normal, repeat 2014 Social History Social History Type Response Smoking Status Never smoker entered on: 03/07/16 Sex
--- OUTSIDE RECORDS SUMMARY | 2022-12-07 20:18 | XMS_ITS | Continuity of Care Document ---
:1945 Author Organization [facility] Adult Address [address] [place] [address]- Care Team Providers Name Role Phone Leesa MURILLO, Gomez Tenorio Primary Care Physician Encounter [facility] Date(s): 09/26/20 - 10/26/20 [facility] Adult [address] [place] [address]- Allergies, Adverse Reactions, Alerts Substance Reaction Severity [...] sanchez yearly for skin exams.2Sees Dr. Prabhakar [id number]; repeat optional based on patient's age per Dr. HillLxnsnxzk4Hupvdqvdigw 2004 normal, repeat 2014 Social History Social History Type Response Smoking Status Never smoker entered on: 03/07/16 Sex
--- OUTSIDE RECORDS SUMMARY | 2022-12-07 20:19 | XMS_ITS | Continuity of Care Document ---
:1945 Author Organization [facility] Adult Address [address] [place] [address]- Care Team Providers Name Role Phone Gomez Landers MD Primary Care Physician Encounter [facility] [place] Date(s): 10/26/21 - 11/25/21 [facility] Adult [address] [place] [address]- Attending Physician: Admtr, Ar8 Admitting Physician: Admtr, [...] Zostavax (oldterm) 12/02/12 Recorded pneumococcal 23-valent vaccine 3/16/12 Recorded Medications Acidophilus Probiotic Blend oral capsule [...] sanchez yearly for skin exams.2Sees Dr. Prabhakar [id number]; repeat optional based on patient's age per Dr. HillZidvkmlr9Qhlfhointpl 2005 normal, repeat 2014 Social History Social History Type Response Smoking Status Never smoker entered on: 03/07/16 Sex
--- OUTSIDE RECORDS SUMMARY | 2022-12-07 20:19 | XMS_ITS | Continuity of Care Document ---
:1945 Author Organization [facility] Adult Address [address] [place] [address]- Care Team Providers Name Role Phone Leesa MURILLO, Gomez Tenorio Primary Care Physician [place] [facility] [place](s): 03/27/21 - 04/26/21 [facility] Adult [address] [place] [address]- Allergies, Adverse Reactions, Alerts Substance Reaction Severity [...] 1 Refills, Maintenance, 01/05/21 9:32:00 EDT, Gel, [facility], Partial fill upon patient [...] 01/05/21 9:31:00 EDT, Route to Pharmacy Electronically, [facility], Partial fill upon patient [...] 5 Refills, Soft Stop, 09/27/20 8:00:00 EST, [facility], 176.5, cm, 09/25/20 15:01:00 EST, Height Start Date: 09/27/20 Status: Orderedmeloxicam 15 mg oral tablet 1 tablet = 15 mg, By Mouth, Daily, # 14 tablet, 0 Refills, Maintenance, 01/05/21 9:31:00 EDT, Tablet, [facility], Partial fill upon patient [...] sanchez yearly for skin exams.2Sees Dr. Prabhakar [id number]; repeat optional based on patient's age per Dr. HillAzszhkxg1Qlngckatbvg 2004 normal, repeat 2014 Social History Social History Type Response Smoking Status Never smoker entered on: 03/07/16 Sex
--- OUTSIDE RECORDS SUMMARY | 2022-12-07 20:19 | XMS_ITS | Continuity of Care Document ---
:1945 Author Organization [facility] [place] Adult Address [address] [place] [address]- Care Team Providers Name Role Phone Leesa MURILLO, Gomez Tenorio Primary Care Physician En[place] [facility] [place] Date(s): 11/17/20 - 12/17/20 [facility] [place] Adult [address] [place] [address]- Attending Physician: Kamlesh Ayon Admitting Physician: AdmKamlesh archer Referring Physician: AdmtrKamlesh Allergies, Adverse Reactions, Alerts Substance Reaction Severity [...] 09/27/20 8:00:00 EST, [facility], 176.5, cm, 09/25/20 15:01:00 EST, Height Start Date: 09/27/20 Status: Orderedmeloxicam 15 mg oral tablet 1 tablet = 15 mg, By Mouth, Daily, # 14 tablet, 0 Refills, Maintenance, 11/17/20 15:35:00 EST, Tablet, [facility], Partial fill upon patient request if the prescription is for a schedule II opioid drug., 176.5, cm, 11/17/20 15:01:00 EST, Height Start Date: 11/17/20 Stop Date: 12/01/20 Status: OrderedMultivitamin By Mouth, Daily, 0 Refills, [...] sanchez yearly for skin exams.2Sees Dr. Prabhakar [id number]; repeat optional based on patient's age per Dr. HillBgmxnoeu5Aaluncercqo 2004 normal, repeat 2014 Social History Social History Type Response Smoking Status Never smoker entered on: 03/07/16 Sex
--- OUTSIDE RECORDS SUMMARY | 2022-12-07 20:19 | XMS_ITS | Continuity of Care Document ---
:1945 Author Organization [facility] Adult Address [address] [place] [address]- Care Team Providers Name Role Phone Gomez Landers MD Primary Care Physician [place] [facility] [place]): [place]26/21 - 11/02/21 [facility] Adult [address] [place] [address]- Encounter Diagnosis H/O insomnia (Discharge Diagnosis) - 10/26/21 Attending Physician: Gomez Landers MD Allergies, Adverse [...] sanchez yearly for skin exams.2Sees Dr. Prabhakar [id number]; repeat optional based on patient's age per Dr. HillXhtlxqcg8Dqpavhtkwlj 2004 normal, repeat 2014 Diagnosis Diagnosis Type Effective Dates Health Status Clinical In formant Service H/O insomnia Discharge 10/26/21 Diagnosis Vital Signs Most recent to oldest [Reference Range]: 1 Height 176.5 cm (10/26/21 1:28 PM) Social History Social History Type Response Smoking Status Never smoker entered on: 03/07/16 Sex
--- OUTSIDE RECORDS SUMMARY | 2022-12-07 20:19 | XMS_ITS | Continuity of Care Document ---
:1945 Author Organization [facility] Adult Address [address] [place] [address]- Care Team Providers Name Role Phone Leesa MURILLO, Gomez Tenorio Primary Care Physician Encounter [facility] [place] Date(s): 07/15/22 - 08/14/22 [facility] Adult [address] [place] [address]- Allergies, Adverse Reactions, Alerts No Known Allergies Immunizations Given and Recorded Vaccine Date Status Refusal Reason [id number] 12y+ bivalent booster vax 07/19/22 Recorde d SARS-CoV-2 mRNA (kgrfhkb-osrp-stvqt) vax 02/14/22 Recorde d SARS-CoV-2 (COVID-19) mRNA [...] sanchez yearly for skin exams.2Sees Dr. Prabhakar [id number]; repeat optional based on patient's age per Dr. HillCgvoprax3Yqvrmuknstj 2004 normal, repeat 2014 Social History Social History Type Response Smoking Status Never smoker entered on: 03/07/16 Sex Patient Care team information PersonnelName: Leesa MURILLO, Gomez Tenorio Address: Address: [address] [place] [address]
--- OUTSIDE RECORDS SUMMARY | 2022-12-07 20:19 | XMS_ITS | Continuity of Care Document ---
:1945 Author Organization [facility] Adult Address [address] [place] [address]- Care Team Providers Name Role Phone Leesa MURILLO, Gomez Tenorio Primary Care Physician En[place] [facility] [place](s): 04/05/21 - 04/12/21 [facility] Adult [address] [place] [address]- Attending Physician: Karla CARRANZA, Katharine Mackenzie Allergies, Adverse Reactions, Alerts Substance Reaction Severity [...] Maintenance, 01/05/21 9:32:00 EDT, Gel, [facility], Partial fill [...] EDT, Route to Pharmacy Electronically, [facility], Partial fill [...] Maintenance, 01/05/21 9:31:00 EDT, Tablet, [facility], Partial fill [...] sanchez yearly for skin exams.2Sees Dr. Prabhakar [id number]; repeat optional based on patient's age per Dr. [id number] 2004 normal, repeat 2014 Vital Signs Most recent to oldest [Reference Range]: 1 Height 176.5 cm (04/05/21 9:52 AM) Weight 61.8 kg (04/05/21 9:52 AM) Oxygen Saturation [94-100 %] 95 % (04/05/21 9:52 AM) Pulse Rate [55-90 bpm] 101 bpm *H* (04/05/21 9:52 AM) Body Mass Index [18.5-24.99] 19.84 (04/05/21 9:52 AM) Blood Pressure [90-138/55-84 mm Hg] 102/60 mm Hg (04/05/21 9:52 AM) Temperature [96.8-100.4 DegF] 98.4 DegF (04/05/21 9:52 AM) Blood pressure sites Arm, right (04/05/21 9:52 AM) Temperature Route Oral (04/05/21 9:52 AM) Social History Social History Type Response Smoking Status Never smoker entered on: 03/07/16 Sex
--- OUTSIDE RECORDS SUMMARY | 2022-12-07 20:19 | XMS_ITS | Continuity of Care Document ---
:1945 Author Organization [facility] Address [address] [place] [address]- Care Team Providers Name Role Phone Leesa MURILLO, Gomez Tenorio Primary Care Physician [place] [facility] [place]21 [place] 03/06/21 [facility] [address] [place] [address]- Encounter Diagnosis Chronic low back pain (Discharge Diagnosis) - 02/27/21 Left hip pain (Discharge Diagnosis) - 02/27/21 Attending Physician: Not on Staff, Attending MD Referring Physician: Hazel RN WOUND CARE, Rain Allergies, Adverse Reactions, Alerts Substance Reaction Severity [...] 1 Refills, Maintenance, 01/05/21 9:32:00 EDT, Gel, [facility], Partial fill upon [...] 01/05/21 9:31:00 EDT, Route to Pharmacy Electronically, [facility], Partial fill upon [...] 5 Refills, Soft Stop, 09/27/20 8:00:00 EST, [facility], 176.5, cm, 09/25/20 [...] sanchez yearly for skin exams.2Sees Dr. Prabhakar [id number]; repeat optional based on patient's age per Dr. HillYghfzdqc4Qhclvfofnmp 2004 normal, repeat 2014 Diagnosis Diagnosis Type Effective Dates Health Status Clinical In formant Service Chronic low back Discharge 02/27/21 pain Diagnosis Left hip pain Discharge 02/27/21 Diagnosis Vital Signs Most recent to oldest [Reference Range]: 1 Height 176.5 cm (02/27/21 8:11 AM) Oxygen Saturation [94-100 %] 99 % (02/27/21 8:11 AM) Pulse Rate [55-90 bpm] 74 bpm (02/27/21 8:11 AM) Blood Pressure [90-138/55-84 mm Hg] 82/50 mm Hg *L* (02/27/21 8:11 AM) Temperature [96.8-100.4 DegF] 97.9 DegF (02/27/21 8:11 AM) Blood pressure sites Arm, right (02/27/21 8:11 AM) Temperature Route Oral (02/27/21 8:11 AM) Social History Social History Type Response Smoking Status Never smoker entered on: 03/07/16 Sex
--- OUTSIDE RECORDS SUMMARY | 2022-12-07 20:19 | XMS_ITS | Continuity of Care Document ---
:1945 Author Organization [facility] Adult Address [address] [place] [address]- Care Team Providers Name Role Phone Gomez Landers MD Primary Care Physician [place] [facility] [place](s): 11/17/20 - 11/24/20 [facility] Adult [address] [place] [address]- Attending Physician: Gomez Landers MD Allergies, Adverse [...] 5 Refills, Soft Stop, 09/27/20 8:00:00 EST, [facility], 176.5, cm, 09/25/20 15:01:00 EST, Height Start Date: 09/27/20 Status: Orderedmeloxicam 15 mg oral tablet 1 tablet = 15 mg, By Mouth, Daily, # 14 tablet, 0 Refills, Maintenance, 11/17/20 15:35:00 EST, Tablet, [facility] # [facility], Partial fill upon patient [...] sanchez yearly for skin exams.2Sees Dr. Prabhakar [id number]; repeat optional based on patient's age per Dr. HillNygklwuu6Sxggslwcezb 2004 normal, repeat 2014 Vital Signs Most recent to oldest [Reference Range]: 1 2 Height 176.5 cm 176.5 cm (11/17/20 3:01 PM) (11/17/20 1:01 PM) Weight 59.9 kg (11/17/20 3:01 PM) Oxygen Saturation [94-100 %] 99 % (11/17/20 3:01 PM) Pulse Rate [55-90 bpm] 70 bpm (11/17/20 3:01 PM) Body Mass Index [18.5-24.99] 19.23 (11/17/20 3:01 PM) Blood Pressure [90-138/55-84 mm Hg] 94/60 mm Hg (11/17/20 3:01 PM) Temperature [96.8-100.4 DegF] 97.7 DegF (11/17/20 3:01 PM) Blood pressure sites Arm, right (11/17/20 3:01 PM) Social History Social History Type Response Smoking Status Never smoker entered on: 03/07/16 Sex
--- OUTSIDE RECORDS SUMMARY | 2022-12-07 20:19 | XMS_ITS | Continuity of Care Document ---
:[address] [facility] Adult Address [address] [place] [address]- Care Team Providers Name Role Phone Leesa MURILLO, Gomez Tenorio Primary Care Physician [place] [facility] [place] Date(s): 04/05/21 - 05/05/21 [facility] Adult [address] [place] [address]- Allergies, Adverse Reactions, Alerts Substance Reaction Severity [...] 1 Refills, Maintenance, 01/05/21 9:32:00 EDT, Gel, [facility], Partial fill [...] 01/05/21 9:31:00 EDT, Route to Pharmacy Electronically, [facility] # [facility], Partial fill [...] 5 Refills, Soft Stop, 09/27/20 8:00:00 EST, [facility], 176.5, cm, 09/25/20 15:01:00 EST, Height Start Date: 09/27/20 Status: Orderedmeloxicam 15 mg oral tablet 1 tablet = 15 mg, By Mouth, Daily, # 14 tablet, 0 Refills, Maintenance, 01/05/21 9:31:00 EDT, Tablet, [facility] # [facility], Partial fill [...] sanchez yearly for skin exams.2Sees Dr. Prabhakar [id number]; repeat optional based on patient's age per Dr. HillEtuxrqij4Pccmjgrgvxb 2004 normal, repeat 2014 Social History Social History Type Response Smoking Status Never smoker entered on: 03/07/16 Sex
--- OUTSIDE RECORDS SUMMARY | 2022-12-07 20:19 | XMS_ITS | Continuity of Care Document ---
:1945 Author Organization [facility] Adult Address [address] [place] [address]- Care Team Providers Name Role Phone Leesa MURILLO, Gomez Tenorio Primary Care Physician [place] [facility] [place] Date(s): 07/17/22 - 07/24/22 [facility] Adult [address] [place] [address]- Attending Physician: Tawny Lemos Allergies, Adverse Reactions, Alerts No Known Allergies Immunizations Given and Recorded Vaccine Date Status Refusal Reason [id number] 12y+ bivalent booster vax 07/19/22 Recorde d SARS-CoV-2 mRNA (xcjbpdi-zqhu-eoarh) vax 02/14/22 Recorde d SARS-CoV-2 (COVID-19) mRNA [...] 5 Refills, Soft Stop, 02/20/22 10:58:00 EDT, [facility], 176.5, cm, 10/26/21 [...] sanchez yearly for skin exams.2Sees Dr. Prabhakar [id number]; repeat optional based on patient's age per Dr. HillXgwnntkg4Herfjzyccoa 2004 normal, repeat 2014 Vital Signs Most recent to oldest [Reference Range]: 1 Height 176.5 cm (07/17/22 10:58 AM) Weight 62.4 kg (07/17/22 10:58 AM) Oxygen Saturation [94-100 %] 100 % (07/17/22 10:58 AM) Pulse Rate [55-90 bpm] 82 bpm (07/17/22 10:58 AM) Body Mass Index [18.5-24.99 kg/m2] 20.03 kg/m2 (07/17/22 10:58 AM) Blood Pressure [90-138/55-84 mm Hg] 101/53 mm Hg (07/17/22 10:58 AM) Temperature [96.8-100.4 DegF] 97.9 DegF (07/17/22 10:58 AM) Blood pressure sites Arm, right (07/17/22 10:58 AM) Temperature Route Temporal (07/17/22 10:58 AM) Weight Obtained Via Standing scale (07/17/22 10:58 AM) Social History Social History Type Response Smoking Status Never smoker entered on: 03/07/16 Sex Patient Care team information PersonnelName: Gomez Landers MD Address: Address: [address] [place] [id number]
--- OUTSIDE RECORDS SUMMARY | 2022-12-07 20:19 | XMS_ITS | Continuity of Care Document ---
:1945 Author Organization [facility] Adult Address [address] [place] [address]- Care Team Providers Name Role Phone Leesa MURILLO, Gomez Tenorio Primary Care Physician Encounter [facility] [place] Date(s): 03/28/21 - 04/27/21 [facility] Adult [address] [place] [address]- Allergies, Adverse Reactions, Alerts Substance Reaction Severity [...] 1 Refills, Maintenance, 01/05/21 9:32:00 EDT, Gel, [facility] # [facility], Partial fill upon [...] 01/05/21 9:31:00 EDT, Route to Pharmacy Electronically, [facility] # [facility], Partial fill upon [...] 5 Refills, Soft Stop, 09/27/20 8:00:00 EST, [facility] # [facility], 176.5, cm, 09/25/20 15:01:00 EST, Height Start Date: 09/27/20 Status: Orderedmeloxicam 15 mg oral tablet 1 tablet = 15 mg, By Mouth, Daily, # 14 tablet, 0 Refills, Maintenance, 01/05/21 9:31:00 EDT, Tablet, [facility] # [facility], Partial fill upon [...] sanchez yearly for skin exams.2Sees Dr. Prabhakar [id number]; repeat optional based on patient's age per Dr. HillNlmqgmrg1Oronmuwhqcy 2004 normal, repeat 2014 Social History Social History Type Response Smoking Status Never smoker entered on: 03/07/16 Sex
--- OUTSIDE RECORDS SUMMARY | 2022-12-07 20:19 | XMS_ITS | Continuity of Care Document ---
:1945 Author Organization [facility] Adult Address [address] [place] [address]- Care Team Providers Name Role Phone Gomez Landers MD Primary Care Physician [place] [facility] [place] Date(s): 10/24/22 - 11/23/22 [facility] Adult [address] [place] [address]- Allergies, Adverse Reactions, Alerts No Known Allergies [...] Recorded influenza virus vaccine, inactivated 07/26/15 Recorded [id number] 12y+ bivalent booster vax 07/26/22 Recorde d MCQW-LeP-0eWFD 12y+ bivalent booster vax 07/19/22 Recorde d SARS-CoV-2 mRNA (lcwebgb-rhgq-jieoh) vax 02/14/22 Recorde d SARS-CoV-2 (COVID-19) mRNA [...] 5 Refills, Soft Stop, 10/02/22 12:08:00 EST, [facility], 176.5, cm, 07/17/22 [...] sanchez yearly for skin exams.2Sees Dr. Prabhakar [id number]; repeat optional based on patient's age per Dr. HillVtdugnbh2Swsqjgixbew 2004 normal, repeat 2014 Social History Social History Type Response Smoking Status Never smoker entered on: 03/07/16 Sex Patient Care team information Care Team PersonnelName: Leesa MURILLO, Gomez Tenorio Position: [facility] Primary Care Physician Member Role: PCP Address: Address: [address] [place] [address]- Care Team Related PersonsName: SABA CALLCY Address: home [address] [place] [address]
--- OUTSIDE RECORDS SUMMARY | 2022-12-07 20:19 | XMS_ITS | Continuity of Care Document ---
:1945 Author Organization [facility] Adult Address [address] [place] [address]- Care Team Providers Name Role Phone Gomez Landers MD Primary Care Physician [place] [facility] [place] Date(s): 10/09/22 - 10/16/22 [facility] Adult [address] [place] [address]- Encounter Diagnosis H/O insomnia (Discharge Diagnosis) - 10/09/22 History of BPH (Discharge Diagnosis) - 10/09/22 Hypercholesteremia (Discharge Diagnosis) - 10/09/22 Constipation (Discharge Diagnosis) - 10/09/22 Attending Physician: Gomez Landers MD Allergies, Adverse [...] Recorded influenza virus vaccine, inactivated 07/26/15 Recorded [id number]-PxV-[id number] 12y+ bivalent booster vax 07/26/22 Recorde d PSVL-GeX-6nBXV 12y+ bivalent booster vax 07/19/22 Recorde d SARS-CoV-2 mRNA (rejhjcy-dwls-gjfcg) vax 02/14/22 Recorde d SARS-CoV-2 (COVID-19) mRNA [...] 5 Refills, Soft Stop, 10/02/22 12:08:00 EST, [facility], 176.5, cm, 07/17/22 10:58:00 [...] sanchez yearly for skin exams.2Sees Dr. Prabhakar [id number]; repeat optional based on patient's age per Dr. HillBbwinddi5Nkrslnmjrrr 2004 normal, repeat 2014 Diagnosis Diagnosis Type Effective Dates Health Clinical Infor mant Status Service H/O insomnia Discharge 10/09/22 Diagnosis History of BPH Discharge 10/09/22 Diagnosis Hypercholesteremia Discharge 10/09/22 Diagnosis Constipation Discharge 10/09/22 Diagnosis Vital Signs Most recent to oldest [Reference Range]: 1 Height 176.5 cm (10/09/22 10:54 AM) Weight 63.5 kg (10/09/22 10:54 AM) Oxygen Saturation [94-100 %] 98 % (10/09/22 10:54 AM) Pulse Rate [55-90 bpm] 67 bpm (10/09/22 10:54 AM) Body Mass Index [18.5-24.99 kg/m2] 20.38 kg/m2 (10/09/22 10:54 AM) Blood Pressure [90-138/55-84 mm Hg] 90/58 mm Hg (10/09/22 10:54 AM) Mode of Delivery (Oxygen) Room air (10/09/22 10:54 AM) Blood pressure sites Arm, left (10/09/22 10:54 AM) Weight Obtained Via Standing scale (10/09/22 10:54 AM) Social History Social History Type Response Smoking Status Never smoker entered on: 03/07/16 Sex Patient Care team information Care Team PersonnelName: Gomez Landers MD Position: S Primary Care Physician Member Role: PCP Address: Address: [address] [place] [address]- Care Team Related PersonsName: GLENDA CALL Address: home [address] [place] [address]
--- OUTSIDE RECORDS SUMMARY | 2022-12-07 20:19 | XMS_ITS | Continuity of Care Document ---
:1945 Author Organization [facility] Adult Address [address] [place] [address]- Care Team Providers Name Role Phone Leesa MURILLO, Gomez Tenorio Primary Care Physician Encounter [facility] Date(s): 04/17/20 - 05/17/20 [facility] Adult [address] [place] [address]- [facility] Allergies, Adverse Reactions, Alerts Substance Reaction Severity [...] sanchez yearly for skin exams.2Sees Dr. Prabhakar [id number]; repeat optional based on patient's age per Dr. HillAsknhquw7Wvjzkdmvjol 2004 normal, repeat 2014 Social History Social History Type Response Smoking Status Never smoker entered on: 03/07/16 Sex
--- OUTSIDE RECORDS SUMMARY | 2022-12-07 20:19 | XMS_ITS | Continuity of Care Document ---
:1945 Author Organization [facility] Adult Address [address] [place] [address]- Care Team Providers Name Role Phone Gomez Landers MD Primary Care Physician Encounter [facility] [place] Date(s): 06/21/21 - 07/21/21 [facility] Adult [address] [place] [address]- Allergies, Adverse Reactions, Alerts Substance Reaction Severity [...] 5 Refills, Soft Stop, 09/27/20 8:00:00 EST, [facility], 176.5, cm, 09/25/20 15:01:00 EST, Height Start Date: 09/27/20 Status: Orderedmeloxicam 15 mg oral tablet 1 tablet = 15 mg, By Mouth, Daily, # 14 tablet, 0 Refills, Maintenance, 01/05/21 9:31:00 EDT, Tablet, [facility], Partial fill [...] sanchez yearly for skin exams.2Sees Dr. Prabhakar [id number]; repeat optional based on patient's age per Dr. HillKdkjdlwa3Rwzcbbeedox 2004 normal, repeat 2014 Social History Social History Type Response Smoking Status Never smoker entered on: 03/07/16 Sex
--- OUTSIDE RECORDS SUMMARY | 2022-12-07 20:19 | XMS_ITS | Continuity of Care Document ---
:1945 Author Organization [facility] Adult Address [address] [place] [address]- Care Team Providers Name Role Phone Gomez Landers MD Primary Care Physician Encounter [facility] [place] Date(s): 08/07/21 - 08/14/21 [facility] Adult [address] [place] [address]- Attending Physician: Not on Staff, Attending MD Allergies, Adverse Reactions, Alerts Substance Reaction [...] 1 Refills, Maintenance, 01/05/21 9:32:00 EDT, Gel, [facility], Partial fill [...] 01/05/21 9:31:00 EDT, Route to Pharmacy Electronically, [facility], Partial fill [...] 0 Refills, Maintenance, 01/05/21 9:31:00 EDT, Tablet, [facility], Partial fill [...] sanchez yearly for skin exams.2Sees Dr. Prabhakar [id number]; repeat optional based on patient's age per Dr. HillJjljzzwk1Tjckksbljqg 2004 normal, repeat 2014 Social History Social History Type Response Smoking Status Never smoker entered on: 03/07/16 Sex
--- OUTSIDE RECORDS SUMMARY | 2022-12-07 20:19 | XMS_ITS | Continuity of Care Document ---
:1945 Author Organization [facility] Adult Address [address] [place] [address]- Care Team Providers Name Role Phone Gomez Landers MD Primary Care Physician [place] [facility] [place](s): 02/17/20 - 02/24/20 [facility] Adult [address] [place] [address]- [facility] Encounter Diagnosis Contact dermatitis (Discharge Diagnosis) - 02/17/20 Attending Physician: Rain Oliva NP Referring Physician: Gomez Landers MD Allergies, Adverse Reactions, [...] Maintenance, 10/03/15 15:28:16 Start Date: 10/03/15 Status: OrderedCortizone-10 1% cream 1 application, Topically, 2 times a day, # 30 Gm, 1 Refills, Acute 03/02/20 13:28:00 EDT, 02/17/20 13:28:00 EDT, Cream, [id number], 1 application Topically 2 times a day, 176.5, cm, 09/13/19 11:31:00 EST, Height Start Date: 02/17/20 Stop Date: 03/02/20 Status: OrderedDiphenhist 25 mg oral tablet 1 [...] sanchez yearly for skin exams.2Sees Dr. Prabhakar [id number]; repeat optional based on patient's age per Dr. HillWiuhetlc1Kapnkxjhgkw 2004 normal, repeat 2014 Diagnosis Diagnosis Type Effective Dates Health Clinical Infor mant Status Service Contact Discharge 02/17/20 dermatitis Diagnosis Social History Social History Type Response Smoking Status Never smoker entered on: 03/07/16 Sex
--- OUTSIDE RECORDS SUMMARY | 2022-12-07 20:19 | XMS_ITS | Continuity of Care Document ---
:1945 Author Organization [facility] Adult Address [address] [place] [address]- Care Team Providers Name Role Phone Leesa MURILLO, Gomez Tenorio Primary Care Physician Encounter [facility] [place] Date(s): 01/05/21 - 01/12/21 [facility] Adult [address] [place] [address]- Encounter Diagnosis Costochondritis (Discharge Diagnosis) - 01/05/21 GERD (gastroesophageal reflux disease) (Discharge Diagnosis) - 01/05/21 Attending Physician: Not on Staff, Attending MD [...] 1 Refills, Maintenance, 01/05/21 9:32:00 EDT, Gel, [facility], Partial fill upon [...] 01/05/21 9:31:00 EDT, Route to Pharmacy Electronically, [facility], Partial fill upon [...] Soft Stop, 09/27/20 8:00:00 EST, [facility], 176.5, cm, [...] sanchez yearly for skin exams.2Sees Dr. Prabhakar [id number]; repeat optional based on patient's age per Dr. HillFaehlqrk4Phmxtauqmwv 2004 normal, repeat 2014 Diagnosis Diagnosis Type Effective Dates Health Clinical Infor mant Status Service Costochondritis Discharge 01/05/21 Diagnosis GERD Discharge 01/05/21 (gastroesophageal Diagnosis reflux disease) Vital Signs Most recent to oldest [Reference Range]: 1 Height 176.5 cm (01/05/21 8:29 AM) Weight 60.1 kg (01/05/21 8:29 AM) Oxygen Saturation [94-100 %] 98 % (01/05/21 8:29 AM) Pulse Rate [55-90 bpm] 76 bpm (01/05/21 8:29 AM) Body Mass Index [18.5-24.99] 19.29 (01/05/21 8:29 AM) Blood Pressure [90-138/55-84 mm Hg] 94/62 mm Hg (01/05/21 8:29 AM) Respiratory Rate [16-30 br/min] 14 br/min *L* (01/05/21 8:29 AM) Temperature [96.8-100.4 DegF] 97.9 DegF (01/05/21 8:29 AM) Mode of Delivery (Oxygen) Room air (01/05/21 8:29 AM) Blood pressure sites Arm, right (01/05/21 8:29 AM) Temperature Route Oral (01/05/21 8:29 AM) Weight Obtained Via Standing scale (01/05/21 8:29 AM) Social History Social History Type Response Smoking Status Never smoker entered on: 03/07/16 Sex
--- OUTSIDE RECORDS SUMMARY | 2022-12-07 20:19 | XMS_ITS | Continuity of Care Document ---
:1945 Author Organization [facility] Adult Address [address] [place] [address]- Care Team Providers Name Role Phone Gomez Landers MD Primary Care Physician [place] [facility] [place]s): 10/05/21 - 10/12/21 [facility] Adult [address] [place] [address]- Encounter Diagnosis Actinic keratosis (Discharge Diagnosis) - 10/05/21 Family history of prostate cancer in father (Discharge Diagnosis) - 10/05/21 Hypercholesteremia (Discharge Diagnosis) - 10/05/21 History of BPH (Discharge Diagnosis) - 10/05/21 Attending Physician: Gomez Landers MD Allergies, Adverse [...] sanchez yearly for skin exams.2Sees Dr. Prabhakar [id number]; repeat optional based on patient's age per Dr. HillAobjvdri2Ttaibmbfzzp 2004 normal, repeat 2014 Diagnosis Diagnosis Type Effective Health Clinical Informant Dates Status Service Actinic keratosis Discharge 10/05/21 Diagnosis Family history of Discharge 10/05/21 prostate cancer in Diagnosis father Hypercholesteremia Discharge 10/05/21 Diagnosis History of BPH Discharge 10/05/21 Diagnosis Vital Signs Most recent to oldest [Reference Range]: 1 Height 176.5 cm (10/05/21 12:56 PM) Weight 63.1 kg (10/05/21 12:56 PM) Oxygen Saturation [94-100 %] 98 % (10/05/21 12:56 PM) Pulse Rate [55-90 bpm] 78 bpm (10/05/21 12:56 PM) Body Mass Index [18.5-24.99] 20.26 (10/05/21 12:56 PM) Blood Pressure [90-138/55-84 mm Hg] 90/62 mm Hg (10/05/21 12:56 PM) Blood pressure sites Arm, left (10/05/21 12:56 PM) Weight Obtained Via Standing scale (10/05/21 12:56 PM) Social History Social History Type Response Smoking Status Never smoker entered on: 03/07/16 Sex
--- OUTSIDE RECORDS SUMMARY | 2022-12-07 20:19 | XMS_ITS | Continuity of Care Document ---
:1945 Author Organization [facility] Adult Address [address] [place] [address]- Care Team Providers Name Role Phone Leesa MURILLO, Gomez Tenorio Primary Care Physician Encounter [facility] [place] Date(s): 11/17/20 - 12/17/20 [facility] Adult [address] [place] [address]- Allergies, Adverse Reactions, Alerts Substance Reaction Severity [...] 5 Refills, Soft Stop, 09/27/20 8:00:00 EST, [facility], 176.5, cm, 09/25/20 15:01:00 EST, Height Start Date: 09/27/20 Status: Orderedmeloxicam 15 mg oral tablet 1 tablet = 15 mg, By Mouth, Daily, # 14 tablet, 0 Refills, Maintenance, 11/17/20 15:35:00 EST, Tablet, [facility], [...] 0 Refills, Maintenance, 10/03/15 15:27:34 Start Date: 12/15/15 Status: OrderedVitamin C 500 mg oral tablet [...] sanchez yearly for skin exams.2Sees Dr. Prabhakar [id number]; repeat optional based on patient's age per Dr. HillKluitzgw6Atzhmlsqxqc 2004 normal, repeat 2014 Social History Social History Type Response Smoking Status Never smoker entered on: 03/07/16 Sex
--- OUTSIDE RECORDS SUMMARY | 2022-12-07 20:20 | XMS_ITS | Continuity of Care Document ---
:1945 Author Organization [facility] Adult Address [address] [place] [address]- Care Team Providers Name Role Phone Leesa MURILLO, Gomez Tenorio Primary Care Physician Encounter [facility] Date(s): 02/11/22 - 03/13/22 [facility] Adult [address] [place] [address]- Allergies, Adverse Reactions, Alerts No Known Allergies Immunizations Given and Recorded Vaccine Date Status Refusal Reason SARS-CoV-2 mRNA (nwmiuup-siwz-appjt) vax 02/14/22 Recorde d SARS-CoV-2 (COVID-19) mRNA [...] Soft Stop, 02/20/22 10:58:00 EDT, [facility], 176.5, cm, 10/26/21 [...] sanchez yearly for skin exams.2Sees Dr. Prabhakar [id number]; repeat optional based on patient's age per Dr. HillFagytqnz4Gpbpjhgnseu 2005 normal, repeat 2014 Social History Social History Type Response Smoking Status Never smoker entered on: 03/07/16 Sex
--- OUTSIDE RECORDS SUMMARY | 2022-12-07 20:20 | XMS_ITS | Continuity of Care Document ---
:1945 Author Organization [facility] [place] Adult Address [address] [place] [address]- Care Team Providers Name Role Phone Gomez Landers MD Primary Care Physician [facility]counter [facility] Date(s): 05/22/22 - 06/21/22 [facility] [place] [facility] [address] [place] [address]- Allergies, Adverse Reactions, Alerts No Known Allergies Immunizations Given and Recorded Vaccine Date Status Refusal Reason SARS-CoV-2 mRNA ([id number]-[id number]-[id number]) vax 02/14/22 Recorde d SARS-CoV-2 (COVID-19) mRNA [...] 5 Refills, Soft Stop, 02/20/22 10:58:00 EDT, [facility] # [facility], 176.5, cm, 10/26/21 [...] sanchez yearly for skin exams.2Sees Dr. Prabhakar [id number]; repeat optional based on patient's age per Dr. HillNpfqsyie0Oakozmzjksk 2004 normal, repeat 2014 Social History Social History Type Response Smoking Status Never smoker entered on: 03/07/16 Sex Care Team PersonnelName: Leesa MURILLO, Gomez Tenorio Address: [address] [place] [id number]
--- OUTSIDE RECORDS SUMMARY | 2022-12-07 20:20 | XMS_ITS | Continuity of Care Document ---
:1945 Author Organization [facility] Address [address] [place] [address]- Care Team Providers Name Role Phone Gomez Landers MD Primary Care Physician Encounter [facility] [place] Date(s): 07/17/22 - 08/16/22 [facility] [address] [place] [address]- Attending Physician: Admtr, Ar8 Admitting Physician: Admtr, Ar8 Referring Physician: Admtr, Ar8 Allergies, Adverse Reactions, Alerts No Known Allergies Immunizations Given and Recorded Vaccine Date Status Refusal Reason [id number] 12y+ bivalent booster vax 07/19/22 Recorde d SARS-CoV-2 mRNA (aserjxs-ulre-hxbnv) vax 02/14/22 Recorde d SARS-CoV-2 (COVID-19) mRNA [...] pneumococcal 13-valent vaccine 10/03/15 Given Tetanus Toxoid 2/19/14 Recorded tetanus/diphtheria/pertussis, acel(Tdap) 12/08/13 Recorde d Zostavax [...] 5 Refills, Soft Stop, 02/20/22 10:58:00 EDT, [facility], 176.5, cm, [...] 0 Refills, Maintenance, 05/14/22 13:36:00 EDT, [facility] # [facility], Partial fill upon patient [...] sanchez yearly for skin exams.2Sees Dr. Prabhakar [id number]; repeat optional based on patient's age per Dr. HillYozvwvxr2Wfmtgjdtnfm 2004 normal, repeat 2014 Social History Social History Type Response Smoking Status Never smoker entered on: 03/07/16 Sex Patient Care team information PersonnelName: Leesa MURILLO, Gomez Tenorio Address: Address: [address] [place] [id number]
--- OUTSIDE RECORDS SUMMARY | 2022-12-07 20:20 | XMS_ITS | Continuity of Care Document ---
:1945 Author Organization [facility] Adult Address [address] [place] [address]- Care Team Providers Name Role Phone Leesa MURILLO, Gomez Tenorio Primary Care Physician [place] [facility] [place] 10/02/22 - 11/01/22 [facility] Adult [address] [place] [address]- Allergies, Adverse Reactions, Alerts No Known Allergies [...] Recorded influenza virus vaccine, inactivated 07/26/15 Recorded [id number] 12y+ bivalent booster vax 07/26/22 Recorde d [id number]-[id number] 12y+ bivalent booster vax 07/19/22 Recorde d SARS-CoV-2 mRNA (fkxzytv-ykcx-ikgpz) vax 02/14/22 Recorde d SARS-CoV-2 (COVID-19) mRNA [...] 5 Refills, Soft Stop, 10/02/22 12:08:00 EST, [facility] # [facility], 176.5, cm, 07/17/22 [...] sanchez yearly for skin exams.2Sees Dr. Prabhakar [id number]; repeat optional based on patient's age per Dr. HillTzcbbenr4Kjujtibwjop 2004 normal, repeat 2014 Social History Social History Type Response Smoking Status Never smoker entered on: 03/07/16 Sex Patient Care team information Care Team PersonnelName: Leesa MURILLO, Gomez Tenorio Position: [facility] Primary Care Physician Member Role: PCP Address: Address: [address] [place] [address]- Care Team Related PersonsName: JAKUB GLENDA Address: home [address] [place] [address]
--- OUTSIDE RECORDS SUMMARY | 2022-12-07 20:20 | XMS_ITS | Continuity of Care Document ---
:1945 Author Organization [facility] Adult Address [address] [place] [address]- Care Team Providers Name Role Phone Gomez Landers MD Primary Care Physician Encounter [facility] Date(s): 07/16/21 - 08/15/21 [facility] Adult [address] [place] [address]- Allergies, Adverse Reactions, Alerts Substance Reaction Severity [...] 1 Refills, Maintenance, 01/05/21 9:32:00 EDT, Gel, [facility] # [facility], Partial fill [...] 01/05/21 9:31:00 EDT, Route to Pharmacy Electronically, [facility] # [facility], Partial fill [...] 5 Refills, Soft Stop, 09/27/20 8:00:00 EST, [facility], 176.5, cm, 09/25/20 15:01:00 EST, Height Start Date: 09/27/20 Status: Orderedmeloxicam 15 mg oral tablet 1 tablet = 15 mg, By Mouth, Daily, # 14 tablet, 0 Refills, Maintenance, 01/05/21 9:31:00 EDT, Tablet, [facility] # [facility], Partial fill [...] sanchez yearly for skin exams.2Sees Dr. Prabhakar [id number]; repeat optional based on patient's age per Dr. HillNhreqoaw6Uvxdongromx 2004 normal, repeat 2014 Social History Social History Type Response Smoking Status Never smoker entered on: 03/07/16 Sex
--- OUTSIDE RECORDS SUMMARY | 2022-12-07 20:20 | XMS_ITS | Continuity of Care Document ---
:1945 Author Organization [facility] Adult Address [address] [place] [address]- Care Team Providers Name Role Phone Leesa MURILLO, Gomez Tenorio Primary Care Physician Encounter [facility] Date(s): 01/04/21 - 02/03/21 [facility] Adult [address] [place] [address]- Allergies, Adverse Reactions, Alerts Substance Reaction Severity [...] Soft Stop, 09/27/20 8:00:00 EST, [facility], 176.5, cm, 09/25/20 15:01:00 EST, Height Start Date: 09/27/20 Status: Orderedmeloxicam 15 mg oral tablet 1 tablet = 15 mg, By Mouth, Daily, # 14 tablet, 0 Refills, Maintenance, 01/05/21 9:31:00 EDT, Tablet, [facility], Partial fill [...] sanchez yearly for skin exams.2Sees Dr. Prabhakar [id number]; repeat optional based on patient's age per Dr. HillAzgbvlex9Yktbjqmvyct 2004 normal, repeat 2014 Social History Social History Type Response Smoking Status Never smoker entered on: 03/07/16 Sex
--- OUTSIDE RECORDS SUMMARY | 2022-12-07 20:20 | XMS_ITS | Continuity of Care Document ---
:1945 Author Organization [facility] Adult Address [address] [place] [address]- Care Team Providers Name Role Phone Leesa MURILLO, Gomez Tenorio Primary Care Physician Encounter [facility] [place] Date(s): 04/05/21 - 05/05/21 [facility] Adult [address] [place] [address]- Attending Physician: Rony Ayon8 Admitting Physician: AdmKamlesh archer Referring Physician: Admtr, Rony8 Allergies, Adverse Reactions, Alerts Substance Reaction Severity [...] sanchez yearly for skin exams.2Sees Dr. Prabhakar [id number]; repeat optional based on patient's age per Dr. HillUkuddawb2Uleialsonai 2004 normal, repeat 2014 Social History Social History Type Response Smoking Status Never smoker entered on: 03/07/16 Sex
--- OUTSIDE RECORDS SUMMARY | 2022-12-07 20:20 | XMS_ITS | Continuity of Care Document ---
:1945 Author Organization [facility] Adult Address [address] [place] [address]- Care Team Providers Name Role Phone Gomez Landers MD Primary Care Physician Encounter [facility] [place] Date(s): 08/08/21 - 09/07/21 [facility] Adult [address] [place] [address]- Allergies, Adverse Reactions, Alerts Substance Reaction Severity [...] 5 Refills, Soft Stop, 09/27/20 8:00:00 EST, [facility], 176.5, cm, 09/25/20 15:01:00 EST, Height Start Date: 09/27/20 Status: Orderedmeloxicam 15 mg oral tablet 1 tablet = 15 mg, By Mouth, Daily, # 14 tablet, 0 Refills, Maintenance, 01/05/21 9:31:00 EDT, Tablet, [facility] # [facility], [...] sanchez yearly for skin exams.2Sees Dr. Prabhakar [id number]; repeat optional based on patient's age per Dr. HillDsxhjwto7Gchpenmavha 2004 normal, repeat 2014 Social History Social History Type Response Smoking Status Never smoker entered on: 03/07/16 Sex
--- OUTSIDE RECORDS SUMMARY | 2022-12-07 20:20 | XMS_ITS | Continuity of Care Document ---
:1945 Author Organization [facility] Adult Address [address] [place] [address]- Care Team Providers Name Role Phone Gomez Landers MD Primary Care Physician Encounter [facility] Date(s): 05/14/22 - 06/13/22 [facility] Adult [address] [place] [address]- Allergies, Adverse Reactions, Alerts No Known Allergies Immunizations Given and Recorded Vaccine Date Status Refusal Reason SARS-CoV-2 mRNA (favqfed-jgra-kirsi) vax 02/14/22 Recorde d SARS-CoV-2 (COVID-19) mRNA [...] Soft Stop, 02/20/22 10:58:00 EDT, [facility] # [facility], 176.5, cm, 10/26/21 [...] sanchez yearly for skin exams.2Sees Dr. Prabhakar [id number]; repeat optional based on patient's age per Dr. HillAeifbcoo4Pnfmudhrzrg 2004 normal, repeat 2014 Social History Social History Type Response Smoking Status Never smoker entered on: 03/07/16 Sex Care Team PersonnelName: Leesa MURILLO, Gomez Tenorio Address: [address] [place] [id number]
--- OUTSIDE RECORDS SUMMARY | 2022-12-07 20:20 | XMS_ITS | Continuity of Care Document ---
:1945 Author Organization [facility] Adult Address [address] [place] [address]- Care Team Providers Name Role Phone Leesa MURILLO, Gomez Tenorio Primary Care Physician Encounter [facility] [place] Date(s): 05/14/22 - 05/21/22 [facility] Adult [address] [place] [address]- Encounter Diagnosis COVID-19 virus infection (Discharge Diagnosis) - 05/14/22 Attending Physician: Agnes Cano NP Allergies, Adverse Reactions, Alerts No Known Allergies Immunizations Given and Recorded Vaccine Date Status Refusal Reason SARS-CoV-2 mRNA (tfzzbwi-vzul-kegek) vax 02/14/22 Recorde d SARS-CoV-2 (COVID-19) mRNA [...] Refills, Soft Stop, 02/20/22 10:58:00 EDT, [facility], 176.5, cm, 10/26/21 13:28:00 [...] capsule, 0 Refills, Maintenance, 05/14/22 13:36:00 EDT, [facility] # [facility], Partial fill [...] sanchez yearly for skin exams.2Sees Dr. Prabhakar [id number]; repeat optional based on patient's age per Dr. HillSthenyti2Cxcmbuompok 2004 normal, repeat 2014 Diagnosis Diagnosis Type Effective Dates Health Status Clinical In formant Service COVID-19 virus Discharge 05/14/22 infection Diagnosis Vital Signs Most recent to oldest [Reference Range]: 1 Height 176.5 cm (05/14/22 1:37 PM) Social History Social History Type Response Smoking Status Never smoker entered on: 03/07/16 Sex
--- OUTSIDE RECORDS SUMMARY | 2022-12-07 20:20 | XMS_ITS | Continuity of Care Document ---
:1945 Author Organization [facility] Address [address] [place] [address]- Care Team Providers Name Role Phone Gomez Landers MD Primary Care Physician Encounter [facility] [place] Date(s): 03/16/20 - 03/23/20 [facility] [address] [place] [address]- [facility] Encounter Diagnosis Chronic low back pain (Discharge Diagnosis) - 03/16/20 Osteoarthritis cervical spine (Discharge Diagnosis) - 03/16/20 Hypercholesteremia (Discharge Diagnosis) - 03/16/20 H/O insomnia (Discharge Diagnosis) - 03/16/20 Attending Physician: Gomez Landesr MD Allergies, Adverse Reactions, Alerts Substance Reaction [...] sanchez yearly for skin exams.2Sees Dr. Prabhakar [id number]; repeat optional based on patient's age per Dr. HillCpqyyayr0Yjixneavdzq 2004 normal, repeat 2014 Diagnosis Diagnosis Type Effective Health Clinical Informant Dates Status Service Chronic low back pain Discharge 03/16/20 Diagnosis Osteoarthritis cervical Discharge 03/16/20 spine Diagnosis Hypercholesteremia Discharge 03/16/20 Diagnosis H/O insomnia Discharge 03/16/20 Diagnosis Vital Signs Most recent to oldest [Reference Range]: 1 Height 176.5 cm (03/16/20 11:03 AM) Weight 58.2 kg (03/16/20 11:03 AM) Oxygen Saturation [94-100 %] 97 % (03/16/20 11:03 AM) Pulse Rate [55-90 bpm] 76 bpm (03/16/20 11:03 AM) Body Mass Index [18.5-24.99] 18.68 (03/16/20 11:03 AM) Blood Pressure [90-138/55-84 mm Hg] 90/62 mm Hg (03/16/20 11:03 AM) Respiratory Rate [16-30 br/min] 14 br/min *L* (03/16/20 11:03 AM) Temperature [96.8-100.4 DegF] 97.5 DegF (03/16/20 11:03 AM) Mode of Delivery (Oxygen) Room air (03/16/20 11:03 AM) Blood pressure sites Arm, right (03/16/20 11:03 AM) Weight Obtained Via Standing scale (03/16/20 11:03 AM) Social History Social History Type Response Smoking Status Never smoker entered on: 03/07/16 Sex
--- OUTSIDE RECORDS SUMMARY | 2022-12-07 20:20 | XMS_ITS | Continuity of Care Document ---
:1945 Author Organization [facility] Adult Address [address] [place] [address]- Care Team Providers Name Role Phone Gomez Landers MD Primary Care Physician [place] [facility] [place](s): 08/07/21 - 09/06/21 [facility] [address] [place] [address]- Attending Physician: Admtr, Ar8 Admitting Physician: Admtr, [...] Maintenance, 01/05/21 9:32:00 EDT, Gel, [facility], Partial fill [...] 01/05/21 9:31:00 EDT, Route to Pharmacy Electronically, [facility], Partial fill upon [...] sanchez yearly for skin exams.2Sees Dr. Prabhakar [id number]; repeat optional based on patient's age per Dr. HillIsriwhhc4Aljkejdhiwn 2004 normal, repeat 2014 Social History Social History Type Response Smoking Status Never smoker entered on: 03/07/16 Sex
--- OUTSIDE RECORDS SUMMARY | 2022-12-07 20:20 | XMS_ITS | Continuity of Care Document ---
:[address] [facility] Adult Address [address] [place] [address]- Care Team Providers Name Role Phone Leesa MURILLO, Gomez Tenorio Primary Care Physician Encounter [facility] Date(s): 01/15/21 - 02/14/21 [facility] [address] [place] [address]- Allergies, Adverse Reactions, Alerts Substance Reaction Severity [...] 01/05/21 9:32:00 EDT, Gel, [facility] # [facility], Partial fill upon [...] Route to Pharmacy Electronically, [facility] # [facility], Partial fill upon [...] Stop, 09/27/20 8:00:00 EST, [facility], 176.5, cm, 09/25/20 15:01:00 EST, Height Start Date: 09/27/20 Status: Orderedmeloxicam 15 mg oral tablet 1 tablet = 15 mg, By Mouth, Daily, # 14 tablet, 0 Refills, Maintenance, 01/05/21 9:31:00 EDT, Tablet, [facility], Partial fill upon [...] sanchez yearly for skin exams.2Sees Dr. Prabhakar [id number]; repeat optional based on patient's age per Dr. HillRmdyapbt5Deabavnqcjz 2004 normal, repeat 2014 Social History Social History Type Response Smoking Status Never smoker entered on: 03/07/16 Sex
[2022-12-07 20:27] VITALS: BP 124/73; PULSE 93; RESP 16; TEMP 36.8; O2SAT 95
== END 2022-12-07 20:49 | disposition home or self-care (01) ==
PROVIDERS: Emergency Provider Emergency Medicine; PCP Internal Medicine
DX: S92.354A Nondisplaced fracture of fifth metatarsal bone, right foot, initial encounter for closed fracture (principal); X50.1XXA Overexertion from prolonged static or awkward postures, initial encounter; E78.5 Hyperlipidemia, unspecified; Y93.89 Activity, other specified; Y92.019 Unspecified place in single-family (private) house as the place of occurrence of the external cause; Y99.9 Unspecified external cause status
CPT/HCPCS: 73600; 73620; 99283

== ENCOUNTER 2024-02-26 11:16 | Inpatient (IN) | payer MEDICARE, SELFPAY ==
--- NOTE | ~2024-02-26 | MR_ITS ---
MR BRAIN WITHOUT CONTRAST CLINICAL INFORMATION: Double vision. Question acute CVA. COMPARISON: Head CT and CTA head and neck 02/26/2024. TECHNIQUE: MRI of the brain was obtained using routine sequences without contrast. FINDINGS: There is no hydrocephalus, extra-axial surface collection, or herniation. There is mild to moderate chronic microangiopathy. The major flow voids at the skull base are preserved. There is no acute infarct on diffusion-weighted imaging. There is no intracranial hemorrhage on the gradient recalled echo acquisition. The midline structures are normal. The cerebellar tonsils are normally positioned. The cerebellum and brainstem are normal. The craniocervical junction is normal. Osseous marrow signal intensity is homogenous. The visualized soft tissues are unremarkable. MR/MR head/brain wo con IMPRESSION: - No acute intracranial findings. No acute infarcts. - There is mild to moderate chronic microangiopathy.
--- NOTE | ~2024-02-26 | CT_ITS ---
EXAMINATION: CT ANGIOGRAM HEAD CT ANGIOGRAM NECK CLINICAL INFORMATION: Reason for Exam double vision? TIA COMPARISON: None. TECHNIQUE: Test bolus sequences followed by intravenous administration 75 mL of Omnipaque 350. Helical imaging was performed in the axial plane from the aortic arch to the skull vertex. Delayed postcontrast imaging of the head was also performed. The data was processed at the senior medical technologist's workstation for generation of MIP sequences. Angled MIPs and volume rendered reformatted images were also generated at an offline 3D workstation. Stenoses are assessed in accordance with Hwang et al. Quantification of Carotid Stenosis on CT Angiography. AJR 2006. 27(1):13-19. [address] CT examination was performed using dose optimization techniques as appropriate, variously including the following: *Automated exposure control *Adjustment of mA and/or kV according to patient size (this includes techniques or standardized protocols for targeted exams where dose is matched to indication/reason for exam; i.e. extremities or head) *Use of iterative reconstruction technique DLP: 1562 mGy-cm FINDINGS: CT HEAD: Mild generalized parenchymal volume loss. Patchy periventricular and deep white matter hypoattenuation is nonspecific but most suggestive of mild chronic microangiopathy. Age indeterminate left herman radiata/striatocapsular low-density that would be more definitively assessed on MRI. No acute intracranial hemorrhage or extra-axial fluid collection. No mass lesion, significant mass effect, or herniation pattern. No pathologic intra-axial enhancement or regional oligemia. Stable fusiform thickening of several extraocular muscles, most notably the inferior rectus muscles with sparing of the tendinous insertions that may be seen in the setting of thyroid eye disease and can be correlated with thyroid function tests. Paranasal sinuses and mastoid air cells are well aerated. Osseous structures are intact. Right greater than left TMJ osteoarthrosis. CTA HEAD: No hemodynamically significant stenosis or occlusion in the anterior or posterior circulation. Trace calcific plaque of the left paraclinoid ICA without associated stenosis. right BIOINFORMATICS SCIENTIST. No aneurysms and no high flow vascular malformations. Timing of the contrast bolus allows assessment of the major dural venous sinuses, which all opacify normally. 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 CTA NECK: Two vessel branching pattern of the arch with left common carotid artery arising from the brachiocephalic trunk. Origins of the great vessels are widely patent. The common carotid arteries are widely patent. The left carotid bifurcation is normal. Minimal atherosclerotic disease of the right parotid bifurcation without stenosis. The internal carotid arteries are widely patent, noting an elongated/ossified right styloid process/stylohyoid ligament impinges upon the ventral wall of the right ICA at the level of C2. The left vertebral artery is dominant. The vertebral artery ostia are widely patent. Both vertebral arteries are widely patent throughout their extracranial cervical course. CT NECK: 4 mm right thyroid nodule below size criteria for imaging follow-up. Advanced cervical spondylosis contributing to multilevel apparent at least mild spinal canal stenosis and multilevel severe neural foraminal narrowing. Elongated/ossified bilateral styloid processes/stylohyoid ligaments that can be correlated clinically for the possibility of [place] syndrome. CT/CT angio head neck IMPRESSION: 1. Age indeterminate left herman radiata/striatocapsular low-density that would be more definitively assessed on MRI. Findings communicated to Dr Ferrer 7:52 PM on 02/26/2024. No acute arterial occlusion or hemodynamically significant stenosis within the head or neck. 2. No hemodynamically significant stenosis or occlusion. No acute arterial dissection or intracranial saccular aneurysm. 3. Elongated/ossified bilateral styloid processes/stylohyoid ligaments that can be correlated clinically for the possibility of [place] syndrome with impingement upon the ventral wall of the right ICA at the level of C2 without significant luminal narrowing.
--- NOTE | ~2024-02-26 | CT_ITS ---
EXAMINATION: CT HEAD WITHOUT CONTRAST CLINICAL INFORMATION: Resolved double vision COMPARISON: None available. TECHNIQUE: Contiguous axial imaging was performed from the skull base to vertex without intravenous administration of contrast. This CT examination was performed using dose optimization techniques as appropriate, variously including the following: *Automated exposure control *Adjustment of mA and/or kV according to patient size (this includes techniques or standardized protocols for targeted exams where dose is matched to indication/reason for exam; i.e. extremities or head) *Use of iterative reconstruction technique DLP: 629 mGy-cm FINDINGS: There is prominence to the sulci and ventricles with deep white matter gliosis observed but no intra or extra-axial fluid collection, hemorrhage, mass, or mass effect. Calvarium is intact. Incidental note is made of mucoperiosteal thickening in the anterior right ethmoid sinus. CT/CT head/brain wo IV con IMPRESSION: Chronic changes observed. No acute findings.
[2024-02-26 11:23] VITALS: BP 98/42; PULSE 67; RESP 17; TEMP 36.6; O2SAT 98; BMI 19.4
--- NOTE | 2024-02-26 11:31 | ED_ITS ---
HPI - General Adult General Chief complaint: General Medical Stated complaint: Double vision Time Seen by Provider: 02/26/24 16:03 Source: patient, RN notes reviewed and old records reviewed Mode of arrival: ambulatory Limitations: no limitations History of Present Illness HPI narrative: 79-year-old male with past medical history significant for hyperlipidemia presents for evaluation an episode of double vision. Patient reports at sikh, 4 days ago he was sitting watching the hoop maker machine when ?I saw two of him. He reports that he removed his glasses and was still seeing double. Patient did not have any pain with this, denies any flashing lights or floaters He believes both eyes were affected This episode lasted about a minute or 2 before resolving Patient then states he had another episode that was less noticeable the following day on Friday, 3 days ago Again without any pain or other signs or symptoms. 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 He reports that the brain MRI showed chronic changes but no other abnormalities Related Data Home Medications ?Medication ?Instructions ?Recorded ?Confirmed lorazepam 0.5 mg tablet 0.5 mg PO BEDTIME PRN Sleep 02/26/24 02/26/24 pravastatin 40 mg tablet 40 mg PO BEDTIME 02/26/24 02/26/24 tamsulosin 0.4 mg capsule 0.4 mg PO BEDTIME 02/26/24 02/26/24 Previous Rx's ?Medication ?Instructions ?Recorded aspirin 81 mg tablet,delayed 81 mg PO DAILY 30 days #30 tabs 02/27/24 release (Enteric Coated Aspirin) Allergies Allergy/AdvReac Type Severity Reaction Status Date / Time Seasonal Allergies Allergy Runny Nose Verified 02/26/24 11:25 Review of Systems 2 Constitutional: Constitutional: Denies body ache(s), Denies chills and Denies fever(s) Eyes: Eyes: Denies blind spots, Denies blurry vision, Denies exophthalmos, Denies decreased night vision, Reports diplopia, Denies eye discharge, Denies dry eyes, Denies floaters and Denies irritation Cardiovascular: Cardiovascular: Denies chest pain and Denies dyspnea Respiratory: Respiratory: Denies cough and Denies dyspnea Gastrointestinal: Gastrointestinal: Denies abdominal pain Musculoskeletal: Musculoskeletal: Denies back pain Integumentary/Breasts: Skin/Breast: Denies rash Neurologic: Denies confusion Psychiatric: Psychiatric: Denies abnormal sleep pattern and Denies confusion [facility] Past Medical History Medical History (Updated 02/26/24 @ 23:16 by BROOKE Reynoso) BPH (benign prostatic hyperplasia) HLD (hyperlipidemia) Insomnia Social History Social History Household Members: Family Housing: House Patient Tobacco Use Status: Never used Tobacco service: No Physical Exam ED Vital Signs: Vital Signs - 24 hr 02/26/24 11:23 02/26/24 15:43 02/26/24 17:03 Temperature 98 F 97.8 F Pulse Rate 67 55 50 Respiratory Rate 17 16 17 Blood Pressure 98/42 L 104/50 L 112/56 L Pulse Oximetry 98 98 99 Oxygen Delivery Method Room Air Room Air Room Air 02/26/24 17:03 Temperature 97.9 F Pulse Rate Respiratory Rate Blood Pressure Pulse Oximetry Oxygen Delivery Method BMI result Body Mass Index 19.4 Const General: cooperative, healthy appearing and comfortable; No confusion Nutritional Appearance: well nourished Orientation/consciousness: patient oriented x3 and No confusion HENMT Head: Yes normocephalic and Yes atraumatic Eyes Alignment and Position: alignment normal and position normal Periorbital: periorbital findings normal Eyelids: Yes eyelids normal Conjunctivae: conjunctivae normal Sclerae: sclerae normal Corneas: corneas normal Pupils: Equal, round and reactive pupils present EOM: EOMs intact bilaterally (Minimal nystagmus bilaterally) Resp Effort & Inspection: normal respiratory effort, able to speak in complete sentences and not labored Skin General skin exam: no rashes or lesions noted and elasticity normal Neuro General: patient oriented x3 and No confusion Cranial nerves: Yes CN's II-XII intact bilaterally, Yes Equal, round and reactive pupils present and Yes Bilaterally intact EOM present Cognition (Neuro): normal cognition Extrem Other: Moving all extremities well without any obvious deformities Course Course Course Narrative: RME: 79 yold male presents to the ED for 2 breif episodes of double vision that occurred a week ago. patient states since than has been asymptoamtic. NIH Score Zer0. patient sent by [facility] Doctor office for evaluatoin. labs, EKG, and head SCan ordered. Patient baseline hypotensive with systolic in the 90s. Repeat Blood pressure 105/67. NIH Score 0, Reevaluation(s) Reevaluation #1: Patient's CT angiography shows concern for age indeterminate infarct in the herman radiata. His unclear if this is related to his symptoms at this time, however given the patient's concerning symptoms as well as concerning CT findings, will discuss the hospitalist for admission for brain MRI Time: 20:30 Medications Administered Discontinued Medications Generic Name Dose Route Start Last Admin Trade Name Freq PRN Reason Stop Dose Admin Aspirin 324 mg 02/26/24 19:54 02/26/24 20:38 Aspirin 81 Mg Tab.Chew PO 02/26/24 19:55 324 mg ONCE ONE Administration Aspirin 81 mg 02/27/24 09:00 02/27/24 08:10 Aspirin 81 Mg Tab.Chew PO 81 mg DAILY CODI Administration Atorvastatin Calcium 40 mg 02/26/24 21:10 02/26/24 22:05 Atorvastatin Calcium 40 Mg Tablet PO 40 mg BEDTIME CODI Administration Enoxaparin Sodium 40 mg 02/26/24 20:45 02/26/24 22:05 Enoxaparin Sodium 40 Mg/0.4 Ml Syringe SUBCUT 40 mg Q24H CODI Administration Iohexol 75 ml 02/26/24 19:20 02/26/24 19:21 Iohexol 350 Mg/Ml 100 Ml Infus..Btl IV 02/26/24 19:21 75 ml ONCE ONE Administration Lorazepam 0.5 mg 02/26/24 21:01 02/26/24 22:25 Lorazepam 0.5 Mg Tablet PO 0.5 mg BEDTIME PRN Administration Sleep Sodium Chloride 3 ml 02/27/24 00:00 02/27/24 08:10 0.9 % Sodium Chloride Flush 3 Ml Syringe IVFLUSH 3 ml QSHIFT CODI Administration Tamsulosin HCl 0.4 mg 02/26/24 21:05 02/26/24 22:25 Tamsulosin Hcl 0.4 Mg Capsule PO 0.4 mg BEDTIME CODI Administration Medical Decision Making Medical Decision Making [facility] Narrative: 79-year-old male with past medical history significant for hyperlipidemia presents for evaluation of double vision. He is currently asymptomatic. He has had 3 episodes of double vision over last 4 days. He is not anticoagulated or on antiplatelets. EKG is a normal sinus rhythm with arrhythmia, no AFib. Given his transient double vision there is concern for TIA. Plan for CT angiography of the neck to evaluate for carotids. The patient's CT brain without contrast shows only chronic changes. Differential Diagnosis Differential Diagnoses: The differential diagnosis associated with the presentation includes Double vision Diplopia TIA Nystagmus Cranial nerve palsy Intracranial mass Lab Data [facility] Lab Attestation statement: I reviewed the patient's lab results. No leukocytosis. The patient has a very mild anemia with a normal hemoglobin and hematocrit of 41.8. Platelet count within normal limits. Patient's electrolytes and renal function within normal limits. 02/27/24 05:26 02/27/24 05:26 Labs: Lab Results 02/26/24 Range/Units 11:49 WBC 4.5 L (4.8-10.8) X10*3/uL RBC 4.47 L (4.60-5.80) X10*6/uL Hgb 14.1 (14.0-18.0) g/dl Hct 41.8 L (42.0-52.0) % MCV 93.5 (80.0-98.0) fL MCH 31.5 (27.0-33.0) pg MCHC 33.7 (31.0-36.0) g/dl RDW 13.1 (11.0-16.0) % Plt Count 179 (160-400) X10*3/uL MPV 9.8 (9.4-12.4) fL Immature Gran % (Auto) 0.2 (0.0-0.4) % Neut % (Auto) 67.0 (45-73) % Lymph % (Auto) 20.8 (20-40) % Morrison % (Auto) 10.7 (2-11) % Eos % (Auto) 0.9 (0-4) % Baso % (Auto) 0.4 (0-2) % Lymph # (Auto) 0.9 L (1.2-4.9) X10*3/uL Morrison # (Auto) 0.5 (0.1-1.2) X10*3/uL Eos # (Auto) 0.0 (0.0-0.4) X10*3/uL Baso # (Auto) 0.0 (0.0-0.2) X10*3/uL Abs Immat Gran (auto) 0.01 (0.00-0.03) X10*3/uL Absolute Neuts (auto) 3.0 (2.0-8.3) x10*3/uL Absolute Nucleated RBC 0.000 (0.0-0.012) X10*3/uL Nucleated RBC % (auto) 0.0 (0.0-0.2) /100WBC PT 11.7 (11.1-13.3) SEC INR 1.0 (0.9-1.1) APTT 31.3 (26.0-36.8) SEC Sodium 142 (135-145) mmol/L Potassium 4.7 (3.3-5.1) mmol/L Chloride 106 (96-108) mmol/L Carbon Dioxide 27 (22-29) mmol/L Anion Gap 14 (12-20) BUN 19 H (9-16) mg/dL Creatinine 0.89 (0.5-1.4) mg/dL Estim Creat Clear Calc 58.2 Estimated GFR > 60 Random Glucose 78 (60-115) mg/dL Calcium 9.7 (8.4-10.2) mg/dL Total Bilirubin 0.4 (0.0-1.0) mg/dL AST 22 (5-37) U/L ALT 18 (0-40) U/L Alkaline Phosphatase 95 (39-117) U/L Troponin I High Sens < 2.7 (<3.5-35.0) ng/L Total Protein 6.6 (6.5-8.0) g/dL Albumin 4.0 (3.5-5.0) g/dL Independent Interpretation I performed an independent interpretation of an: EKG (Sinus rhythm with sinus arrhythmia. No ST segment elevation or depression. No significant change when compared to previous from November of 2010.) Discharge Plan Discharge Clinical Impression: Diplopia Patient Disposition: Admitted As Inpatient Interventions: Admission Worksheet (ED) Last Done: 02/27/24 08:01 Discharge Date/Time: 02/27/24 09:30
--- NOTE | 2024-02-26 11:33 | ECG_ITS ---
Test Reason : DOUBLE VISION Blood Pressure : / mmHG Vent. Rate : 063 BPM Atrial Rate : 063 BPM P-R Int : 162 ms QRS Dur : 090 ms QT Int : 398 ms P-R-T Axes : 055 083 051 degrees QTc Int : 407 ms Sinus rhythm with marked sinus arrhythmia Possible Anterior infarct (cited on or before 05-DEC-2010) Abnormal ECG When compared with ECG of 05-DEC-2010 09:11, No significant change was found Referred By: Amor Ayala Electronically Signed By:Darien Leigh
--- OUTSIDE RECORDS SUMMARY | 2024-02-26 11:52 | XMS_ITS | Continuity of Care Document ---
Author Organization [facility] Address [address] [place] [address]- Care Team Providers Care Healthcare Consulting Manager Name Role Phone Leesa MURILLO, Gomez Tenorio Primary Care Physician [facility]counter [facility] Date(s): 06/09/23 - 06/16/23 [facility] [address] [place] [address]- Attending Physician: Not on Staff, Attending MD Referring Physician: Not on Staff, Referring MD Allergies, Adverse Reactions, Alerts No Known Allergies Immunizations Given and Recorded Vaccine Date Status Refusal Reason pneumococcal 20-valent conjugate vaccine 1 04/11/23 Given influenza virus vaccine, inactivated 08/08/22 Syd rded influenza virus vaccine, inactivated 06/26/21 Syd rded influenza virus vaccine, inactivated 06/24/20 Syd rded influenza virus vaccine, inactivated 08/16/19 Syd rded influenza virus vaccine, inactivated 08/14/18 Syd rded influenza virus vaccine, inactivated 08/05/17 Syd rded influenza virus vaccine, inactivated 07/21/17 Syd rded influenza virus vaccine, inactivated 07/13/16 Syd rded influenza virus vaccine, inactivated 08/03/15 Syd rded influenza virus vaccine, inactivated 07/26/15 Syd rded [id number] 12y+ bivalent booster vax 07/26/22 Recorded [id number] 12y+ bivalent booster vax 07/19/22 Recorded SARS-CoV-2 mRNA ([id number]-uhry-olkia) vax 02/14/22 Recorded SARS-CoV-2 (COVID-19) mRNA BNT-162b2 vac 07/15/21 Recorded SARS-CoV-2 (COVID-19) mRNA BNT-162b2 vac 12/13/20 Recorded SARS-CoV-2 (COVID-19) mRNA BNT-162b2 vac 11/22/20 Recorded Influenza Virus Vaccine (oldterm) 07/07/20 Recorde d Influenza Virus Vaccine (oldterm) 08/20/19 Recorde d Influenza Virus Vaccine (oldterm) 06/20/18 Recorde d zoster vaccine, inactivated 06/18/19 Recorded zoster vaccine, inactivated 04/07/19 Recorded zoster vaccine, inactivated 01/29/19 Recorded Zoster Vaccine Live 01/06/19 Recorded pneumococcal 13-valent vaccine 10/03/15 Given Tetanus Toxoid 12/08/13 Recorded tetanus/diphtheria/pertussis, acel(Tdap) 12/08/13 Recorded Zostavax (oldterm) 12/02/12 Recorded pneumococcal 23-valent vaccine 01/03/12 Recorded 1Result Comment: [facility]# 8116-8001-96 Medications Acidophilus Probiotic Blend oral capsule 1 capsule, By Mouth, Daily, 0 Refills, Maintenance, 10/03/15 15:28:16 Start Date: 10/03/15 Status: Ordered Aerochamber See Instructions, # 1 each, Maintenance, Use as directed with all inhalors. Dx: bronchitis with bronchospasm, 06/09/23 13:05:00 EDT, Supply, 176.5, cm, 06/09/23 12:12:00 EDT, Height Start Date: 06/09/23 Status: Ordered albuterol CFC free 90 mcg/inh inhalation aerosol 2, puffs, Inhalation, Every 4 hours, PRN, use with spacer chamber, # 1 each, Refills 0, Tot. Refills 0, Maintenance, 06/09/23 13:04:00 EDT, Route to Pharmacy Electronically, [id number], [facility], 176.5, cm, ... Start Date: 06/09/23 Stop Date: 07/09/23 Status: Ordered diphenhydrAMINE 25 mg oral tablet 1 tablet = 25 mg, By Mouth, Daily at bedtime, PRN for insomnia, # 30 tablet, 0 Refills, Maintenance, 10/09/22 11:15:00 EST, Tablet, Partial fill upon patient request if the prescription is for a schedule II opioid drug. Start Date: 10/09/22 Status: Ordered Fluticasone Nasal Daily, 0 Refills, Maintenance, 10/03/15 12:00:15 Start Date: 10/03/15 Status: Ordered Glucosamine By Mouth, 0 Refills, Maintenance, 10/03/15 15:29:17 Start Date: 10/03/15 Status: Ordered LORazepam 0.5 mg oral tablet 1 tablet = 0.5 mg, By Mouth, Daily at bedtime, PRN INSOMNIA, # 30 tablet, 5 Refills, Soft Stop, 10/02/22 12:08:00 EST, [facility], 176.5, cm, 07/17/22 10:58:00 EDT, Height Start Date: 10/02/22 Status: Ordered Metamucil 400 mg oral capsule 5 capsule = 2,000 mg, By Mouth, 4 times a day, PRN as needed for constipation, with at least 8 ounces of water, # 160 capsule, 0 Refills, Maintenance, 03/27/21 11:25:00 EDT, Capsule, Partial fill upon patient request if the prescription is for a sched... Start Date: 03/27/21 Status: Ordered Multivitamin By Mouth, Daily, 0 Refills, Maintenance, 10/03/15 15:29:03 Start Date: 10/03/15 Status: Ordered pravastatin 40 mg oral tablet 1 tablet, By Mouth, Daily, # 90 tablet, 1 Refills, Maintenance, 12/26/22 10:15:00 EST, [facility], 176.5, cm, 10/09/22 10:54:00 EST, Height Start Date: 12/26/22 Status: Ordered predniSONE 10 mg oral tablet See Instructions, 4 tab x 2d, 3 tab x 2d, 2 tab x 2d Take with food in AM, # 18 tablet, 0 Refills, Acute 06/20/23 13:05:00 EDT, 06/09/23 13:05:00 EDT, [facility], Partial fill upon patient request if the prescription is for a schedule II opi... Start Date: 06/09/23 Stop Date: 06/20/23 Status: Ordered Restasis Every 12 hours, 0 Refills, Maintenance, 09/25/20 15:26:00 EST, Partial fill upon patient request ifthe prescription is for a schedule II opioid drug. Start Date: 09/25/20 Status: Ordered Systane Eyes, Both, 2 times a day, 0 Refills, Maintenance, 10/03/15 15:27:34 Start Date: 10/03/15 Status: Ordered tamsulosin 0.4 mg oral capsule 0.4 mg, 1, capsule, By Mouth, Daily, # 30 capsule, Refills 0, Maintenance, 02/27/21 8:35:00 EDT, Partial fill upon patient request if the prescription is for a schedule II opioid drug. Start Date: 02/27/21 Status: Ordered Vitamin D3 400 intl units oral capsule 1 capsule = 400 International_Units, By Mouth, Daily, 0 Refills, Maintenance, 10/03/15 15:28:48 Start Date: 10/03/15 Status: Ordered Problem List Condition Confirmation Course Effective Dates Status Health Status Informant Multiple abrasions Confirmed Active Actinic keratosis 1 Confirmed Active Allergic rhinitis Confirmed Active Osteoarthritis cervical spine Confirmed Active Chronic low back pain Confirmed Active Constipation Confirmed Active COVID-19 virus infection Confirmed Active Dry eyes 2 Confirmed Active Dermatitis Confirmed Active Family history of prostate cancer in father Confirmed Active H/O insomnia Confirmed Active History of foot fracture 3 Confirmed Active History of BPH Confirmed Active H/O colonoscopy 4, 5 Confirmed Active Hypercholesteremia Confirmed Active Incomplete right bundle branch block Confirmed Active Jaw pain Confirmed Active Left sided sciatica Confirmed Active Subclinical hypothyroidism Confirmed Active 1sees dr. sanchez yearly for skin exams. 2Sees Dr. Prabhakar yearly 3Fifth metatarsal fracture November 2022. [address]; repeat optional based on patient's age per Dr. Hill 5Colonoscopy 2004 normal, repeat 2014 Vital Signs Most recent to oldest [Reference Range]: 1 Height 176.5 cm (06/09/23 12:12 PM) Oxygen Saturation [94-100 %] 99 % (06/09/23 12:12 PM) Pulse Rate [55-90 bpm] 71 bpm (06/09/23 12:12 PM) Blood Pressure [90-138/55-84 mm Hg] 105/ 66mm Hg (06/09/23 12:12 PM) Respiratory Rate [16-30 br/min] 16 br/mi n (06/09/23 12:12 PM) Temperature [96.8-100.4 DegF] 97.5 DegF (06/09/23 12:12 PM) Mode of Delivery (Oxygen) Room air (06/09/23 12:12 PM) Blood pressure sites Arm, left (06/09/23 12:12 PM) Temperature Route Temporal (06/09/23 12:12 PM) Social History Social History Type Response Smoking Status Never smoker entered on: 03/07/16 Sex Patient Care team information Care Team Personnel Name: Leesa MURILLO, Gomez Tenorio Position: S Physician - Primary Care Member Role: PCP Address: Address: [address] [place] [id number]- Care Team Related Persons Name: GLENDA CALL Address: home [address] [place] [address]
--- OUTSIDE RECORDS SUMMARY | 2024-02-26 11:52 | XMS_ITS | Continuity of Care Document ---
Author Organization [facility]enny lt Address [address] [place] [address]- Care Team Providers Care Assembler Finger Buffs Name Role Phone Gomez Landers MD Primary Care Physician [facility]counter [facility] Date(s): 10/31/23 - 11/07/23 [facility] Adult [address] [place] [address]- Attending Physician: Gomez Landers MD Allergies, Adverse Reactions, Alerts No Known Allergies Immunizations Given and Recorded Vaccine Date Status Refusal Reason SARS-CoV-2(COVID-19)mRNA-LNP vac([id number]) 07/25/23 Recorded influenza virus vaccine, inactivated 07/01/23 Syd rded influenza virus vaccine, inactivated 08/08/22 Syd rded [...] influenza virus vaccine, inactivated 07/26/15 Syd rded pneumococcal 20-valent conjugate vaccine 1 04/11/23 Given [id number] 12y+ bivalent booster vax 07/26/22 Recorded [id number] 12y+ bivalent booster vax 07/19/22 Recorded SARS-CoV-2 mRNA (jctmmde-qrsx-figfn) vax 02/14/22 Recorded SARS-CoV-2 (COVID-19) mRNA BNT-162b2 [...] pneumococcal 23-valent vaccine 01/03/12 Recorded 1Result Comment: [facility]# [id number] Medications Acidophilus Probiotic Blend oral capsule 1 [...] 06/09/23 13:04:00 EDT, Route to Pharmacy Electronically, [id number], [facility], 176.5, cm, [...] # 30 tablet, 5 Refills, Soft Stop, 10/10/23 12:09:00 EST, [facility], 176.5, cm, 06/09/23 12:12:00 EDT, Height Start Date: 10/10/23 Status: Ordered Metamucil 400 mg oral capsule [...] Daily, # 90 tablet, 1 Refills, Maintenance, 07/18/23 16:55:00 EDT, [facility], 176.5, cm, 06/09/23 12:12:00 EDT, Height Start Date: 07/18/23 Status: Ordered Restasis Every 12 hours, 0 [...] Course Effective Dates Status Health Status Informant Actinic keratosis 1 Confirmed Active Allergic rhinitis Confirmed Active Bilateral hearing loss Confirmed Active Osteoarthritis cervical spine Confirmed Active [...] Prabhakar yearly 3Fifth metatarsal fracture November 2022. [address]; repeat optional based on patient's age per Dr. Hill 5Colonoscopy 2004 normal, repeat 2014 Vital Signs Most recent to oldest [Reference Range]: 1 Height 176.5 cm (10/31/23 10:40 AM) Social History Social History Type Response Smoking Status Never smoker entered on: 03/07/16 Sex Patient Care team information Care Team Personnel Name: Leesa MURILLO, Gomez Tenorio Position: [facility] Physician - Primary Care Member Role: PCP Address: Address: [address] [place] [id number]- Care Team Related Persons Name: GLENDA CALL Address: home [address] [place] [address]
--- OUTSIDE RECORDS SUMMARY | 2024-02-26 11:53 | XMS_ITS | Continuity of Care Document ---
Author Organization [facility] Address [address] [place] [address]- Care Team Providers Care Diamond Die Maker Name Role Phone Gomez Landers MD Primary Care Physician [phone] Encounter [facility] Date(s): 06/09/23 - 07/09/23 [facility] [address], [place] [address] Attending Physician: AdmKamlesh archer Admitting Physician: Admtr, [id number] Referring Physician: Admtr, [...] influenza virus vaccine, inactivated 07/26/15 Syd rded [id number] 12y+ bivalent booster vax 07/26/22 Recorded [id number] 12y+ bivalent booster vax 07/19/22 Recorded SARS-CoV-2 mRNA (luxzmmn-iwgf-cwrxt) vax 02/14/22 Recorded SARS-CoV-2 (COVID-19) mRNA BNT-162b2 [...] pneumococcal 23-valent vaccine 01/03/12 Recorded 1Result Comment: [facility]# [id number] Medications Acidophilus Probiotic Blend oral capsule 1 [...] 06/09/23 13:04:00 EDT, Route to Pharmacy Electronically, [id number], [facility], 176.5, cm, [...] 5 Refills, Soft Stop, 10/02/22 12:08:00 EST, [facility], 176.5, cm, 07/17/22 10:58:00 [...] tablet, 1 Refills, Maintenance, 12/26/22 10:15:00 EST, [facility], 176.5, cm, 10/09/22 10:54:00 EST, Height Start Date: 12/26/22 Status: Ordered Restasis Every 12 hours, 0 [...] Prabhakar yearly 3Fifth metatarsal fracture November 2022. [address]; repeat optional based on patient's age per Dr. Hill 5Colonoscopy 2004 normal, repeat 2014 Social History Social History Type Response Smoking Status Never smoker entered on: 03/07/16 Sex Patient Care team information Care Team Personnel Name: Gomez Landers MD Position: [facility] Physician - Primary Care Member Role: PCP Address: Address: [address] [place] [id number]- Care Team Related Persons Name: GLENDA CALL Address: home [address] [place] [address]
--- OUTSIDE RECORDS SUMMARY | 2024-02-26 11:54 | XMS_ITS | Continuity of Care Document ---
Author Organization [facility] Kermit Denny lt Address [address] [place] [address]- Care Team Providers Care Bodybuilder Name Role Phone Leesa MURILLO, Gomez Tenorio Primary Care Physician [phone] [facility] Date[facility]): 01/09/24 - 02/08/24 [facility] Camilo Carmen Adult [address] [place] [address]- Allergies, Adverse Reactions, Alerts No Known Allergies Immunizations Given and Recorded Vaccine Date Status Refusal Reason SARS-CoV-2(COVID-19)mRNA-LNP vac([id number]) 07/25/23 Recorded influenza virus vaccine, inactivated 07/01/23 Syd rded influenza virus vaccine, inactivated 08/08/22 Syd rded influenza virus vaccine, inactivated 06/26/21 Ysd rded influenza virus vaccine, inactivated 06/24/20 Syd [...] pneumococcal 20-valent conjugate vaccine 1 04/11/23 Given [id number]-2yDSZ 12y+ bivalent booster vax 07/26/22 Recorded SKKP-GcK-7rRVO 12y+ bivalent booster vax 07/19/22 Recorded SARS-CoV-2 mRNA (lsuueeg-uddf-wubbl) vax 02/14/22 Recorded SARS-CoV-2 (COVID-19) mRNA BNT-162b2 [...] pneumococcal 23-valent vaccine 01/03/12 Recorded 1Result Comment: [facility]# [id number] Medications Acidophilus Probiotic Blend oral capsule 1 [...] 06/09/23 13:04:00 EDT, Route to Pharmacy Electronically, [id number], [facility], 176.5, cm, [...] 5 Refills, Soft Stop, 10/10/23 12:09:00 EST, [facility], 176.5, cm, 06/09/23 12:12:00 [...] Daily, # 90 tablet, 1 Refills, Maintenance, 01/09/24 10:43:00 EDT, [facility], 176.5, cm, 10/31/23 10:40:00 EST, Height Start Date: 01/09/24 Status: Ordered Restasis Every 12 hours, 0 [...] Prabhakar yearly 3Fifth metatarsal fracture November 2022. [address]; repeat optional based on patient's age per Dr. Hill 5Colonoscopy 2004 normal, repeat 2014 Social History Social History Type Response Smoking Status Never smoker entered on: 03/07/16 Sex Patient Care team information Care Team Personnel Name: Gomez Landers MD Position: [facility] Physician - Primary Care Member Role: PCP Address: Address: [address] [place] [address]- Care Team Related Persons Name: GLENDA CALL Address: home [address] [place] [address]
--- OUTSIDE RECORDS SUMMARY | 2024-02-26 11:54 | XMS_ITS | Continuity of Care Document ---
Author Organization [facility] Camilo Carmen Denny lt Address [address] [place] [address]- Care Team Providers Care E Commerce Merchant Name Role Phone Leesa MURILLO, Gomez Tenorio Primary Care Physician [phone] [facility]counter [facility] Date(s): 12/09/22 - 01/08/23 [facility] Camilo Carmen Adult [address] [place] [address]- Allergies, Adverse Reactions, Alerts No Known Allergies Immunizations Given and Recorded Vaccine Date Status Refusal Reason influenza virus vaccine, inactivated 08/08/22 Ysd rded influenza virus vaccine, inactivated 06/26/21 Syd [...] influenza virus vaccine, inactivated 07/26/15 Syd rded [id number]-[id number] 12y+ bivalent booster vax 07/26/22 Recorded IYXN-AeK-2iIRC 12y+ bivalent booster vax 07/19/22 Recorded SARS-CoV-2 mRNA (wityxnv-rmkh-jszao) vax 02/14/22 Recorded SARS-CoV-2 (COVID-19) mRNA BNT-162b2 [...] 10/03/15 15:28:16 Start Date: 10/03/15 Status: Ordered diphenhydrAMINE 25 mg oral tablet [...] 5 Refills, Soft Stop, 10/02/22 12:08:00 EST, [facility], 176.5, cm, 07/17/22 [...] tablet, 1 Refills, Maintenance, 12/26/22 10:15:00 EST, [facility], 176.5, cm, 10/09/22 10:54:00 [...] Active H/O insomnia Confirmed Active History of BPH Confirmed Active H/O colonoscopy 3, 4 Confirmed Active Hypercholesteremia Confirmed Active Incomplete right bundle branch block Confirmed Active Jaw pain Confirmed Active Left sided sciatica Confirmed Active Subclinical hypothyroidism Confirmed Active 1sees dr. sanchez yearly for skin exams. 2Sees Dr. Prabhakar yearly [address]; repeat optional based on patient's age per Dr. Hill 4Colonoscopy 2004 normal, repeat 2014 Social History Social History Type Response Smoking Status Never smoker entered on: 5/19/16 Sex Patient Care team information Care Team Personnel Name: Leesa MURILLO, Gomez Tenorio Position: [facility] Primary Care Physician Member Role: PCP Address: Address: [address] [place] [address]- Care Team Related Persons Name: GLENDA CALL Address: home [address] [place] [address]
--- OUTSIDE RECORDS SUMMARY | 2024-02-26 11:54 | XMS_ITS | Continuity of Care Document ---
Author Organization [facility] Address [address] [place] [address]- Care Team Providers Care Reduction Furnace Operator Name Role Phone Gomez Landers MD Primary Care Physician Encounter [facility] Date(s): 06/09/23 - 07/09/23 [facility] [address] [place] [address]- Attending Physician: Admgianni, Kamlesh Admitting Physician: Admtr, Ar8 Referring Physician: Admtr, [...] influenza virus vaccine, inactivated 07/26/15 Syd rded [id number]-8eKEL 12y+ bivalent booster vax 07/26/22 Recorded LTEW-YjK-2jMZY 12y+ bivalent booster vax 07/19/22 Recorded SARS-CoV-2 mRNA (yvrnkrd-uusk-pzcar) vax 02/14/22 Recorded SARS-CoV-2 (COVID-19) mRNA BNT-162b2 vac 07/15/21 Recorded SARS-CoV-2 (COVID-19) mRNA BNT-162b2 vac 2/24/21 Recorded SARS-CoV-2 (COVID-19) mRNA BNT-162b2 vac 11/22/20 [...] pneumococcal 23-valent vaccine 01/03/12 Recorded 1Result Comment: [facility]# [id number] Medications Acidophilus Probiotic Blend oral capsule 1 [...] 06/09/23 13:04:00 EDT, Route to Pharmacy Electronically, [id number], [facility], 176.5, cm, [...] 5 Refills, Soft Stop, 10/02/22 12:08:00 EST, [facility] # [facility], 176.5, cm, 07/17/22 10:58:00 [...] tablet, 1 Refills, Maintenance, 12/26/22 10:15:00 EST, [facility] # [facility], 176.5, cm, 10/09/22 10:54:00 [...] Prabhakar yearly 3Fifth metatarsal fracture November 2022. [address]; repeat optional based on patient's age per Dr. Hill 5Colonoscopy 2004 normal, repeat 2014 Social History Social History Type Response Smoking Status Never smoker entered on: 03/07/16 Sex Patient Care team information Care Team Personnel Name: Gomez Landers MD Position: S Physician - Primary Care Member Role: PCP Address: Address: [address] [place] [address]- Care Team Related Persons Name: GLENDA CALL Address: home [address] [place] [address]
--- OUTSIDE RECORDS SUMMARY | 2024-02-26 11:54 | XMS_ITS | Continuity of Care Document ---
Author Organization [facility] Camilo Carmen Denny lt Address [address] [place] [address]- Care Team Providers Care Viticulture Teacher Name Role Phone Leesa MURILLO, Gomez Tenorio Primary Care Physician [facility] Date(s): 10/09/23 - 11/08/23 [facility] Camilo Carmen Adult [address] [place] [address]- Allergies, Adverse Reactions, Alerts No Known Allergies Immunizations Given and Recorded Vaccine Date Status Refusal Reason SARS-CoV-2(COVID-19)mRNA-LNP vac([id number]) 07/25/23 Recorded influenza virus vaccine, inactivated 07/01/23 [...] pneumococcal 20-valent conjugate vaccine 1 04/11/23 Given RCNA-OnV-0tLSQ 12y+ bivalent booster vax 07/26/22 Recorded SQLX-PuC-6qPED 12y+ bivalent booster vax 07/19/22 Recorded SARS-CoV-2 mRNA (gtzhuyw-snqs-qmkwi) vax 02/14/22 Recorded SARS-CoV-2 (COVID-19) mRNA BNT-162b2 [...] 23-valent vaccine 01/03/12 Recorded 1Result Comment: [facility]# [id number] Medications Acidophilus Probiotic Blend oral capsule 1 [...] 06/09/23 13:04:00 EDT, Route to Pharmacy Electronically, [id number], [facility], 176.5, cm, [...] 5 Refills, Soft Stop, 10/10/23 12:09:00 EST, [facility], 176.5, cm, 06/09/23 [...] tablet, 1 Refills, Maintenance, 07/18/23 16:55:00 EDT, [facility], 176.5, cm, 06/09/23 12:12:00 EDT, Height [...] Prabhakar yearly 3Fifth metatarsal fracture November 2022. [address]; repeat optional based on patient's age per Dr. Hill 5Colonoscopy 2004 normal, repeat 2014 Social History Social History Type Response Smoking Status Never smoker entered on: 03/07/16 Sex Patient Care team information Care Team Personnel Name: Gomez Landers MD Position: [facility] Physician - Primary Care Member Role: PCP Address: Address: [address] [place] [address]- Care Team Related Persons Name: GLENDA CALL Address: home [address] [place] [address]
--- OUTSIDE RECORDS SUMMARY | 2024-02-26 11:54 | XMS_ITS | Continuity of Care Document ---
Author Organization [facility] Camilo Carmen Denny lt Address [address] [place] [address]- Care Team Providers Care Gliding Pilot Instructor Name Role Phone Gomez Landers MD Primary Care Physician [facility] Date(s): 04/11/23 - 04/18/23 [facility] Camilo Carmen Adult [address] [place] [address]- Attending Physician: Gomez Landers MD Allergies, Adverse [...] influenza virus vaccine, inactivated 07/26/15 Syd rded [id number]-8jDHW 12y+ bivalent booster vax 07/26/22 Recorded YKLE-VzY-7tLZU 12y+ bivalent booster vax 07/19/22 Recorded SARS-CoV-2 mRNA (jhikesd-mtuh-zxazj) vax 02/14/22 Recorded SARS-CoV-2 (COVID-19) mRNA BNT-162b2 [...] pneumococcal 23-valent vaccine 01/03/12 Recorded 1Result Comment: [facility]# [id number] Medications Acidophilus Probiotic Blend oral capsule 1 [...] Prabhakar yearly 3Fifth metatarsal fracture November 2022. [address]; repeat optional based on patient's age per Dr. Hill 5Colonoscopy 2004 normal, repeat 2014 Vital Signs Most recent to oldest [Reference Range]: 1 Height 176.5 cm (04/11/23 8:49 AM) Weight 62 kg (04/11/23 8:49 AM) Oxygen Saturation [94-100 %] 97 % (04/11/23 8:49 AM) Pulse Rate [55-90 bpm] 82 bpm (04/11/23 8:49 AM) Body Mass Index [18.5-24.99 kg/m2] 19.9 kg/m2 (04/11/23 8:49 AM) Blood Pressure [90-138/55-84 mm Hg] 114/ 68mm Hg (04/11/23 8:49 AM) Mode of Delivery (Oxygen) Room air (04/11/23 8:49 AM) Blood pressure sites Arm, left (04/11/23 8:49 AM) Social History Social History Type Response Smoking Status Never smoker entered on: 03/07/16 Sex Patient Care team information Care Team Personnel Name: Leesa MURILLO, Gomez Tenorio Position: S Physician - Primary Care Member Role: PCP Address: Address: [address] [place] [address] [place] [address]- Care Team Related Persons Name: GLENDA CALL Address: home [address] [place] [address]
--- OUTSIDE RECORDS SUMMARY | 2024-02-26 11:55 | XMS_ITS | Continuity of Care Document ---
Author Organization [facility] Address [address] [place] [address]- Care Team Providers Care Hand Profiler Name Role Phone Gomez Landers MD Primary Care Physician Encounter [facility] [id number] Date(s): 06/09/23 - 07/09/23 [facility] [address] [place], [place] [address] Attending Physician: Not on Staff, Attending MD Referring Physician: Gomez Landers MD Allergies, Adverse [...] influenza virus vaccine, inactivated 07/26/15 Syd rded [id number] 12y+ bivalent booster vax 07/26/22 Recorded [id number]-TxR-[id number] 12y+ bivalent booster vax 07/19/22 Recorded SARS-CoV-2 mRNA (pkghrwh-fhcn-ndjdz) vax 02/14/22 Recorded SARS-CoV-2 (COVID-19) mRNA BNT-162b2 [...] 23-valent vaccine 01/03/12 Recorded 1Result Comment: [facility]# [id number] Medications Acidophilus Probiotic Blend oral capsule 1 [...] 06/09/23 13:04:00 EDT, Route to Pharmacy Electronically, [id number], [facility], 176.5, cm, [...] 5 Refills, Soft Stop, 10/02/22 12:08:00 EST, [facility] # [facility], 176.5, cm, 07/17/22 10:58:00 [...] tablet, 1 Refills, Maintenance, 12/26/22 10:15:00 EST, [facility] # [facility], 176.5, cm, 10/09/22 10:54:00 [...] Prabhakar yearly 3Fifth metatarsal fracture November 2022. [address]; repeat optional based on patient's age per Dr. Hill 5Colonoscopy 2004 normal, repeat 2014 Social History Social History Type Response Smoking Status Never smoker entered on: 03/07/16 Sex Patient Care team information Care Team Personnel Name: Leesa MURILLO, Gomez Tenorio Position: [facility] Physician - Primary Care Member Role: PCP Address: Address: [address] [place] [address]- Care Team Related Persons Name: GLENDA CALL Address: home [address] [place] [address]
[2024-02-26 11:56] LABS: MANUAL DIFF FLAG NO
[2024-02-26 11:59] LABS: Basophils Percent Auto 0.4 % (0-2); Eosinophils Percent Auto 0.9 % (0-4); Hematocrit 41.8 % (42.0-52.0); Hemoglobin 14.1 g/dl (14.0-18.0); Imm Gran Abs Auto 0.01 X10*3/uL (0.00-0.03); Imm Gran Pct Auto 0.2 % (0.0-0.4); Lymphocytes Absolute Auto 0.9 X10*3/uL (1.2-4.9); Lymphocytes Percent Auto 20.8 % (20-40); Mean Corpuscular HGB Conc 33.7 g/dl (31.0-36.0); Mean Corpuscular Hemoglobin 31.5 pg (27.0-33.0); Mean Corpuscular Volume 93.5 fL (80.0-98.0); Mean Platelet Volume 9.8 fL (9.4-12.4); Monocytes Absolute Auto 0.5 X10*3/uL (0.1-1.2); Monocytes Percent Auto 10.7 % (2-11); Platelet Count 179 X10*3/uL (160-400); Red Blood Count 4.47 X10*6/uL (4.60-5.80); Red Cell Distribution Width 13.1 % (11.0-16.0); White Blood Count 4.5 X10*3/uL (4.8-10.8)
[2024-02-26 12:05] LABS: Prothrombin Time 11.7 SEC (11.1-13.3)
[2024-02-26 12:08] LABS: Partial Thromboplastin Time 31.3 SEC (26.0-36.8)
[2024-02-26 12:12] LABS: Alanine Aminotransferase 18 U/L (0-40); Alkaline Phosphatase 95 U/L (39-117); Anion Gap 14 (12-20); Aspartate Amino Transferase 22 U/L (5-37); Bilirubin Total 0.4 mg/dL (0.0-1.0); Blood Urea Nitrogen 19 mg/dL (9-16); Calcium 9.7 mg/dL (8.4-10.2); Carbon Dioxide 27 mmol/L (22-29); Chloride 106 mmol/L (96-108); Creatinine Clr Calc Pharmacy 58.2; Estimated Glomerular Filt Rate > 60; Glucose Random 78 mg/dL (60-115); Potassium 4.7 mmol/L (3.3-5.1); Sodium 142 mmol/L (135-145); Total Protein 6.6 g/dL (6.5-8.0)
[2024-02-26 12:18] LABS: Troponin-I High Sensitivity < 2.7 ng/L (<3.5-35.0)
[2024-02-26 15:43] VITALS: BP 104/50; PULSE 55; RESP 16; TEMP 36.6; O2SAT 98
--- NOTE | 2024-02-26 16:14 | PC.NURSE ---
Pt reports 3 episodes of blurry vision, first episode on Friday, one of Friday and then one today in waiting room. Each episode lasting approx 5 mins each and then resolving on its own. Pt denies any pain or other complaints when these occur. Reports he called his eye doctor who advised him to come to ER. Alert and oriented, breathing even and unlabored, skin warm and dry. VSS. Pt neg for unilateral weakness, arm drift, slurred speech or facial droop.
[2024-02-26 17:03] VITALS: BP 112/56; PULSE 50; RESP 17; TEMP 36.6; O2SAT 99
[2024-02-26] MEDS: iohexoL 350 MG/ML 100 ML INFUS..BTL 75 ML IV (19:21)
[2024-02-26] MEDS: Aspirin 81 MG TAB.CHEW 324 MG PO (20:38)
[2024-02-26 20:40] VITALS: BP 122/87; PULSE 63; RESP 18; TEMP 36.6; O2SAT 97
--- NOTE | 2024-02-26 20:51 | PC.NURSE ---
pt aware of plan of care, pt eating now per request. no concerns or complaints at this time. VSS. Med rec completed
--- NOTE | 2024-02-26 21:05 | P.HPHOSP_ITS ---
History of Present Illness Date of Service: 02/26/24 Attending physician on admission: Gisel Angulo Chief Complaint: Intermittent diplopia Pt is a 79-year-old male with a PMH significant for?HLD, BPH, and insomnia who presents to the ED for evaluation of intermittent diplopia. Patient reports first episode occurred last Friday in [place]?when he noticed he was experiencing double vision. Initially took off his glasses to ?adjust his vision? but diplopia persisted. Episode lasted 2-3 minutes long before resolving. Upon further reflection patient believes he experienced another shorter episode of double vision the next day on Friday. After speaking with his sister patient decided to research this morning possible causes of his symptoms which prompted him to call his element setter, who suggested he come to the ED for further evaluation. Patient then notes while in the waiting room he had another brief episode of diplopia which seemed worse in the left eye than right. Patient denies any other symptoms. No headache, dysarthria, or difficulty word finding. No known confusion or facial droop. Denies hemiparesis or numbness or tingling in extremities. No chest pain/pressure, palpitations. Denies shortness of breath. No fever, chills, nausea, vomiting, abdominal pain. Patient recently underwent an MRI in September for a symmetric hearing loss which he believes was negative. In the ED pt was soft BP as low as 98/42, vitals otherwise WNL. Labs were significant for grossly unremarkable. No leukocytosis. Stable H&H 14.1/41.8. No significant electrolyte abnormalities. Renal and hepatic function WNL. Troponin negative. CT?of head negative for acute findings. CTA of head and neck found age-indeterminate left herman radiata/stride or capsular low-density better assessed with MRI, though no acute arterial occlusion or hemodynamically significant stenosis within the head or neck. EKG demonstrated sinus rhythm with marked sinus arrhythmia without evidence of significant ST elevations or depressions. Pt was treated with aspirin 324 mg p.o. Pt will be admitted to the hospital for treatment and further evaluation of diplopia in the setting of possible CVA. Review of Systems 2 Review of Systems: Intermittent diplopia x3 episodes over past 4 days Denies headache No dysarthria, confusion, or difficulty word finding Denies facial droop No hemiparesis, numbness or tingling in extremities Denies chest pain/pressure, palpitations No fever, chills, nausea, vomiting, abdominal pain Denies shortness of breath PMFSH Medical History (Updated 02/26/24 @ 23:16 by BROOKE Reynoso) BPH (benign prostatic hyperplasia) HLD (hyperlipidemia) Insomnia Social History Patient Tobacco Use Status: Never used Tobacco Smoked in Last 30 Days: No Use of substances other than those prescribed or required for medical reasons: No Advance Directives: No Advance Directives Information Provided: Yes Do you have a plan to hurt others: No Plan Nutrition Risks: No Nutritional Risk Meds Allergies Allergy/AdvReac Type Severity Reaction Status Date / Time Seasonal Allergies Allergy Runny Nose Verified 02/26/24 11:25 Active Medications: Current Medications Acetaminophen (Acetaminophen 325 Mg Tablet) 650 mg PO Q6H PRN PRN Reason: Pain, Mild (Pain Scale 1-3) Enoxaparin Sodium (Enoxaparin Sodium 40 Mg/0.4 Ml Syringe) 40 mg SUBCUT Q24H CODI Lorazepam (Lorazepam 0.5 Mg Tablet) 0.5 mg PO NEEDED PRN PRN Reason: Sleep Melatonin (Melatonin 3 Mg Tablet) 6 mg PO BEDTIME PRN PRN Reason: Insomnia Ondansetron HCl (Ondansetron Hcl 4 Mg/2 Ml Vial) 4 mg IVPUSH Q8H PRN PRN Reason: Nausea and Vomiting Pravastatin Sodium (Pravastatin Sodium 40 Mg Tablet) 40 mg PO BEDTIME CODI Sodium Chloride (0.9 % Sodium Chloride Flush 3 Ml Syringe) 3 ml IVFLUSH QSHIFT CODI Tamsulosin HCl (Tamsulosin Hcl 0.4 Mg Capsule) 0.4 mg PO BEDTIME [facility] Home Medications ?Medication ?Instructions ?Recorded ?Confirmed ?Last Taken ?Type lorazepam 0.5 mg tablet 0.5 mg PO BEDTIME PRN Sleep 02/26/24 02/26/24 Unknown History pravastatin 40 mg tablet 40 mg PO BEDTIME 02/26/24 02/26/24 Unknown History tamsulosin 0.4 mg capsule 0.4 mg PO BEDTIME 02/26/24 02/26/24 Unknown History Physical Exam 2 Vital Signs and Narrative: Vital Signs: Last Vital Signs Temp 97.8 F 02/26/24 20:40 Pulse 63 02/26/24 20:40 Resp 18 02/26/24 20:40 BP 122/87 02/26/24 20:40 Pulse Ox 97 02/26/24 20:40 O2 Del Method Room Air 02/26/24 20:40 BMI result Body Mass Index 19.4 Constitutional: Alert, in no acute distress. Mental Status: Oriented to person, place and time. Eyes: Pupils are equal, round, and reactive to light. Ear, Nose, and Throat: Oropharynx clear, mucous membranes moist. Ears and nose without deformities. Trachea midline. Respiratory: Clear to auscultation bilaterally. No wheezing, rales, or rhonchi. Cardiovascular: S1, S2 regular. No murmurs, rubs, or gallops. Gastrointestinal: Abdomen soft, non-tender, non-distended. Normal bowel sounds. Neurologic: Cranial nerves II-XII are grossly intact bilaterally. No focal neurological deficits. Moves all extremities spontaneously. Skin: Warm, dry. Musculoskeletal: No cyanosis or clubbing. Extremities: No edema. Psychiatric: Normal mood and affect. Results Labs 02/26/24 11:49 02/26/24 11:49 Labs: Laboratory Results - last 24 hr 02/26/24 11:49 MCV 93.5 MCH 31.5 MCHC 33.7 RDW 13.1 Plt Count 179 MPV 9.8 Immature Gran % (Auto) 0.2 Neut % (Auto) 67.0 Lymph % (Auto) 20.8 Gulf % (Auto) 10.7 Eos % (Auto) 0.9 Baso % (Auto) 0.4 Lymph # (Auto) 0.9 L Gulf # (Auto) 0.5 Eos # (Auto) 0.0 Baso # (Auto) 0.0 Abs Immat Gran (auto) 0.01 Absolute Neuts (auto) 3.0 Absolute Nucleated RBC 0.000 Nucleated RBC % (auto) 0.0 PT 11.7 INR 1.0 APTT 31.3 Anion Gap 14 Estim Creat Clear Calc 58.2 Estimated GFR > 60 Random Glucose 78 Calcium 9.7 Total Bilirubin 0.4 AST 22 ALT 18 Alkaline Phosphatase 95 Troponin I High Sens < 2.7 Total Protein 6.6 Albumin 4.0 Imaging Radiologist's Impressions: Impressions Head CT 02/26/24 12:16 IMPRESSION: Chronic changes observed. No acute findings. Head/Neck CTA 02/26/24 19:33 IMPRESSION: 1. Age indeterminate left herman radiata/striatocapsular low-density that would be more definitively assessed on MRI. Findings communicated to Dr Ferrer 7:52 PM on 02/26/2024. No acute arterial occlusion or hemodynamically significant stenosis within the head or neck. 2. No hemodynamically significant stenosis or occlusion. No acute arterial dissection or intracranial saccular aneurysm. 3. Elongated/ossified bilateral styloid processes/stylohyoid ligaments that can be correlated clinically for the possibility of [place] syndrome with impingement upon the ventral wall of the right ICA at the level of C2 without significant luminal narrowing. Assessment and Plan (1) Diplopia: Status: Acute Plan Pt is a 79-year-old male with a PMH significant for?HLD, BPH, and insomnia who presents to the ED for evaluation of intermittent diplopia. Pt will be admitted to the hospital for treatment and further evaluation of diplopia in the setting of possible CVA. Intermittent diplopia Patient with 3 intermittent, brief episodes of diplopia over the past 4 days, longest episode lasting 2-3 minutes long Patient currently asymptomatic the last episode while in the ED waiting room Possibly secondary to CVA CTA of head showed age-indeterminate left herman area of low-density concerning for possible CVA Will start on aspirin, continue statin MRI of brain Echocardiogram Lipid profile PT/OT evaluation Neurology consult Monitor on telemetry BPH Continue tamsulosin Insomnia Continue lorazepam p.r.n. Full Code Attending:?Dr. Angulo DVT Prophylaxis: Lovenox Pt will require a hospitalization of at least two nights for treatment and further evaluation of intermittent diplopia in the setting of possible CVA. Patient will require hospitalization for close monitoring of cardiac function, additional imaging of the brain and heart, and specialist consultation with Neurology. Quality Stroke Does the patient have a stroke diagnosis?: No VTE Prior VTE?: No VTE Risk Level:: Medical - moderate - high VTE Device Contraindication: Treatment Not Indicated VTE Drug Contraindication: N/A - Med Ordered
[2024-02-26] MEDS: Enoxaparin Sodium 40 MG/0.4 ML SYRINGE SUBCUT (22:05)
[2024-02-26] MEDS: Atorvastatin Calcium 40 MG TABLET PO (22:05)
--- NOTE | 2024-02-26 22:07 | PHA.MEDREC ---
Pharmacy Consult ? Medication Reconciliation Pharmacy has completed the medication reconciliation. Spoke to patient and confirmed medication list. He takes lorazepam 0.5 mg at bedtime occasionally for sleep.
[2024-02-26] MEDS: LORazepam 0.5 MG TABLET PO (22:25)
[2024-02-26] MEDS: Tamsulosin HCL 0.4 MG CAPSULE PO (22:25)
--- NOTE | 2024-02-26 22:53 | PC.NURSE ---
pt resting comfortably with eyes closed, breathing even and unlabored, no apparent distress noted at this time.
[2024-02-27] MEDS: 0.9 % Sodium Chloride Flush 3 ML SYRINGE IVFLUSH ×2 (00:43→08:10)
[2024-02-27 00:44] VITALS: BP 108/48; PULSE 57; RESP 14; TEMP 36.7; O2SAT 96
--- NOTE | 2024-02-27 02:52 | PC.NURSE ---
pt reporting when he looks out of his room at he exit sign on the wall he is seeing double when he turns his head to the side. not blurry. happened with glasses on and off, would be normal and then double. vision is normal when looking straight on. no other complaints or concerns at this time
[2024-02-27 05:06] VITALS: BP 101/54; PULSE 59; RESP 15; TEMP 36.5; O2SAT 96
[2024-02-27 05:34] LABS: MANUAL DIFF FLAG NO
[2024-02-27 05:43] LABS: Basophils Percent Auto 0.5 % (0-2); Eosinophils Absolute Auto 0.1 X10*3/uL (0.0-0.4); Eosinophils Percent Auto 1.6 % (0-4); Hemoglobin 13.2 g/dl (14.0-18.0); Imm Gran Abs Auto 0.01 X10*3/uL (0.00-0.03); Imm Gran Pct Auto 0.2 % (0.0-0.4); Lymphocytes Absolute Auto 1.1 X10*3/uL (1.2-4.9); Lymphocytes Percent Auto 19.6 % (20-40); Mean Corpuscular HGB Conc 33.8 g/dl (31.0-36.0); Mean Corpuscular Hemoglobin 31.4 pg (27.0-33.0); Mean Corpuscular Volume 92.6 fL (80.0-98.0); Mean Platelet Volume 10.3 fL (9.4-12.4); Monocytes Absolute Auto 0.7 X10*3/uL (0.1-1.2); Monocytes Percent Auto 12.8 % (2-11); Neutrophils Absolute Auto 3.6 x10*3/uL (2.0-8.3); Neutrophils Percent Auto 65.3 % (45-73); Platelet Count 168 X10*3/uL (160-400); Red Blood Count 4.21 X10*6/uL (4.60-5.80); Red Cell Distribution Width 12.9 % (11.0-16.0); White Blood Count 5.6 X10*3/uL (4.8-10.8)
[2024-02-27 05:54] LABS: Estimated Average Glucose 108 mg/dL; Hemoglobin A1c % 5.4 % (<6.0)
[2024-02-27 06:01] LABS: Anion Gap 14 (12-20); Blood Urea Nitrogen 21 mg/dL (9-16); Carbon Dioxide 25 mmol/L (22-29); Chloride 108 mmol/L (96-108); Cholesterol 130 mg/dL (<200); Creatinine Clr Calc Pharmacy 53.4; Estimated Glomerular Filt Rate > 60; Glucose Random 87 mg/dL (60-115); HDL Cholesterol 32 mg/dL (>40); LDL Cholesterol Calculated 88 mg/dL (<100); Potassium 4.5 mmol/L (3.3-5.1); Sodium 142 mmol/L (135-145); Triglycerides 52 mg/dL (<150)
--- NOTE | 2024-02-27 08:00 | PC.NURSE ---
Resumed care of patient at 0700, he is currently laying comfortable in bed, denies any complaints at this time. At this moment no double vision reported. MRI screening form done at this time. Awaiting for bed placement at this time
[2024-02-27] MEDS: Aspirin 81 MG TAB.CHEW PO (08:10)
[2024-02-27 08:11] VITALS: BP 105/70; PULSE 75; RESP 18; TEMP 36.6; O2SAT 98
[2024-02-27 09:14] VITALS: BMI 18.8
--- NOTE | 2024-02-27 09:52 | MHC.CM.PN ---
CM met with Patient at bedside and addressed IMM with him, providing Patient with the original and a copy has been placed on the chart. Patient lives in a house with his Sister/HCP/Ariane and he required no services nor DME STANDARDS ENGINEER. Home/self care is the goal and CM has initiated and will follow for dc planning. PCP is Dr. Gomez Landers.
[2024-02-27 11:10] VITALS: BP 127/59; PULSE 60; RESP 18; TEMP 35.9; O2SAT 99
[2024-02-27 11:37] VITALS: BMI 18.8
--- NOTE | 2024-02-27 11:53 | MHC.SL.SWA ---
Speech Pathologist Impression: WFL Risk of Aspiration Due to: N/A Dysphasia Diet Status: Regular/Thin Liquid Consistency and Strategies for Safe Swallow: Liquid Intake Recommendation: Thin Liquid Intake Strategies: Unrestricted Solid Food Consistency: Dietary Recommendations: Regular Additional Modifications to Solid Foods: Unremarkable bedside swallow exam. All aspects of oral and pharyngeal phases of swallow deemed to be WFL. Patient also denies having any trouble swallowing. Recommend UPGRADE to REGULAR texture diet with THIN liquids. Oral Medication Intake: Whole with Liquid Please contact the pharmacy regarding appropriate crushable or liquid drug formulations that are available whenever modified delivery is recommended. Compensatory Strategies and Precautions to be Taken for Safe Swallow: Sitting Upright (90 deg) Supervision While Eating and Drinking for Safe Swallow: None Needed Recommendation for Speech: NA:Typical Evaluation Comment: Unremarkable exam. Further ST intervention no longer warranted. Please re-refer if needed. Automatic Steel Tie Adjuster Clinican/Clinical Fellow: Yes: Indira Cruz Supervisory Statement: I have reviewed and agree with the student/clinical fellow's documentation: Yes Speech Language Pathologist: Trista Hudson M.A., CCC-MALTHOUSE LABORER
--- NOTE | 2024-02-27 12:21 | PM.NEUROCN ---
History of Present Illness Data of Consult Service Date: 02/27/24 Primary Care Provider: Gomez Landers MD HPI Reason for consult: Double vision 79 years old man came to emergency room yesterday with complaint of double vision. He said that it started about a week ago when he noted that looking at distance he was seeing to face is. It lasted for a while and then disappear. Yesterday 2. Again and lasted for a while again. He talked to his film reader to suggested that he should come to emergency room. There was no associated symptom in any said that it was all painless. There was no dizziness nausea or vomiting focal numbness or weakness or speech or language difficulty. He denied any breathing or swallowing difficulty or weakness. There was no recent cold or flu-like illness or trauma. Review of Systems Review of Systems: As per HPI. [facility] Past Medical History Medical History (Updated 02/26/24 @ 23:16 by BROOKE Reynoso) BPH (benign prostatic hyperplasia) HLD (hyperlipidemia) Insomnia Social History Social History Household Members: Family Housing: House Patient Tobacco Use Status: Never used Tobacco service: No Meds Allergies Allergy/AdvReac Type Severity Reaction Status Date / Time Seasonal Allergies Allergy Runny Nose Verified 02/26/24 11:25 Active Medications: Current Medications Acetaminophen (Acetaminophen 325 Mg Tablet) 650 mg PO Q6H PRN PRN Reason: Pain, Mild (Pain Scale 1-3) Aspirin (Aspirin 81 Mg Tab.Chew) 81 mg PO DAILY [facility] Last Admin: 02/27/24 08:10 Dose: 81 mg Atorvastatin Calcium (Atorvastatin Calcium 40 Mg Tablet) 40 mg PO BEDTIME CODI Last Admin: 02/26/24 22:05 Dose: 40 mg Enoxaparin Sodium (Enoxaparin Sodium 40 Mg/0.4 Ml Syringe) 40 mg SUBCUT Q24H CODI Last Admin: 02/26/24 22:05 Dose: 40 mg Lorazepam (Lorazepam 0.5 Mg Tablet) 0.5 mg PO BEDTIME PRN PRN Reason: Sleep Last Admin: 02/26/24 22:25 Dose: 0.5 mg Melatonin (Melatonin 3 Mg Tablet) 6 mg PO BEDTIME PRN PRN Reason: Insomnia Ondansetron HCl (Ondansetron Hcl 4 Mg/2 Ml Vial) 4 mg IVPUSH Q8H PRN PRN Reason: Nausea and Vomiting Sodium Chloride (0.9 % Sodium Chloride Flush 3 Ml Syringe) 3 ml IVFLUSH QSHIFT [facility] Last Admin: 02/27/24 08:10 Dose: 3 ml Tamsulosin HCl (Tamsulosin Hcl 0.4 Mg Capsule) 0.4 mg PO BEDTIME [facility] Last Admin: 02/26/24 22:25 Dose: 0.4 mg Home Medications ?Medication ?Instructions ?Recorded ?Confirmed ?Last Taken ?Type lorazepam 0.5 mg tablet 0.5 mg PO BEDTIME PRN Sleep 02/26/24 02/26/24 Unknown History pravastatin 40 mg tablet 40 mg PO BEDTIME 02/26/24 02/26/24 Unknown History tamsulosin 0.4 mg capsule 0.4 mg PO BEDTIME 02/26/24 02/26/24 Unknown History Physical Exam Vital Signs: Vital Signs: Last Vital Signs Temp 96.6 F L 02/27/24 11:10 Pulse 60 02/27/24 11:10 Resp 18 02/27/24 11:10 BP 127/59 L 02/27/24 11:10 Pulse Ox 99 02/27/24 11:10 O2 Del Method Room Air 02/27/24 11:10 BMI result Body Mass Index 18.8 Neuro: Other: He is alert and awake with normal spontaneity of speech fluency comprehension and affect. Face is symmetrical. Visual acharya are normal. There is no pronator drift. Deep tendon reflexes are trace to 1+ with flexor plantars. Speech is normal. Results Labs 02/27/24 05:26 02/27/24 05:26 Labs: Short CBC 02/27/24 Range/Units 05:26 WBC 5.6 (4.8-10.8) X10*3/uL Hgb 13.2 L (14.0-18.0) g/dl Hct 39.0 L (42.0-52.0) % Plt Count 168 (160-400) X10*3/uL BMP 02/27/24 05:26 Sodium 142 Potassium 4.5 Chloride 108 Carbon Dioxide 25 BUN 21 H Creatinine 0.97 Calcium 9.0 D Brain MRI did not reveal any acute abnormality. [id number] amount of chronic microvascular ischemic disease was noted. Mild atrophy was noted. CTA did not reveal any sign of aneurysm or significant stenosis. Assessment and Plan (1) Diplopia: Status: Acute 79 years old man with intermittent double vision with no other associated symptom. Examination was nonfocal. This could be neuromuscular disorder in evolution. Microvascular ischemic disease resulting in transient ischemic attacks was a possibility. At this time my recommendation is to cover him for microvascular disease of brain with anti-platelet agent and statin and order acetyl choline receptor antibody blocking, binding, and modulating titers. He should see a neurologist in a week or 2 for further evaluation. Procedures Date of Service Date of Service: 02/27/24
--- NOTE | 2024-02-27 13:01 | P.DS_ITS ---
DS: Providers Provider Date of Service: 02/27/24 Date of admission: 02/26/24 20:36 Date of discharge: 02/27/24 Primary care physician: Gomez Landers MD Consults: 02/26/24 21:05 Consult to Neurology Routine Consulting Provider: [facility] Reason for consultation: double vision. ?acute cva Attending physician on discharge: Shiv Gage Discharging clinician: Radha Fournier DS: Diagnosis Discharge Diagnosis (1) Diplopia: Status: Acute DS: Summary Hospital Course Hospital Course: From H&P on the day of admission Pt is a 79-year-old male with a PMH significant for?HLD, BPH, and insomnia who presents to the ED for evaluation of intermittent diplopia. Patient reports first episode occurred last Friday in [place]when he noticed he was experiencing double vision. Initially took off his glasses to ?adjust his vision? but diplopia persisted. Episode lasted 2-3 minutes long before resolving. Upon further reflection patient believes he experienced another shorter episode of double vision the next day on Friday. After speaking with his sister patient decided to research this morning possible causes of his symptoms which prompted him to call his drawing instructor, who suggested he come to the ED for further evaluation. Patient then notes while in the waiting room he had another brief episode of diplopia which seemed worse in the left eye than right. Patient denies any other symptoms. No headache, dysarthria, or difficulty word finding. No known confusion or facial droop. Denies hemiparesis or numbness or tingling in extremities. No chest pain/pressure, palpitations. Denies shortness of breath. No fever, chills, nausea, vomiting, abdominal pain. Patient recently underwent an MRI in September for a symmetric hearing loss which he believes was negative. In the ED pt was soft BP as low as 98/42, vitals otherwise WNL. Labs were significant for grossly unremarkable. No leukocytosis. Stable H&H 14.1/41.8. No significant electrolyte abnormalities. Renal and hepatic function WNL. Troponin negative. CT?of head negative for acute findings. CTA of head and neck found age-indeterminate left herman radiata/stride or capsular low-density better assessed with MRI, though no acute arterial occlusion or hemodynamically significant stenosis within the head or neck. EKG demonstrated sinus rhythm with marked sinus arrhythmia without evidence of significant ST elevations or depressions. Pt was treated with aspirin 324 mg p.o. Pt will be admitted to the hospital for treatment and further evaluation of diplopia in the setting of possible CVA. Intermittent diplopia CTA of head showed age-indeterminate left herman area of low-density concerning for possible CVA. MRI negative for acute stroke Started on aspirin, continued on statin. Patient is ambulating in room and has no focal neurological deficits, no need for PT, OT evaluation. Seen by speech, recommended regular diet. Seen by neurology. Possible neuromuscular disorder and evolution, microvascular ischemic disease resulting in TIA also a possibility. Recommended to continue antiplatelet agent and statin upon discharge. Plan to order acetylcholine receptor antibody blocking, binding and modulating titers. Recommend outpatient follow-up with Neurology in 1-2 weeks. Patient has a follow-up appointment with his drawing instructor as well as his PCP in the upcoming weeks. ? [place] syndrome noted on CT - discussed with neurology - incidental finding and patient without symptoms. Time Attestation Discharge Coordination Time (in mins): 32 Quality: Safe Use of Opioids Does Pt have an Active Cancer Diagnosis on the Problem List?: No Quality: Stroke Does the patient have a stroke diagnosis?: No Physical Exam Vital Signs: Vital Signs: Last Vital Signs Temp 96.6 F L 02/27/24 11:10 Pulse 60 02/27/24 11:10 Resp 18 02/27/24 11:10 BP 127/59 L 02/27/24 11:10 Pulse Ox 99 02/27/24 11:10 O2 Del Method Room Air 02/27/24 11:10 BMI result Body Mass Index 18.8 Const: General: cooperative, comfortable, alert and awake Nutritional Appearance: average body habitus Orientation/consciousness: patient oriented x3 Resp: Effort & Inspection: normal respiratory effort, able to speak in complete sentences, no respiratory distress and no use of accessory muscles Cardio: Rate: regular rate GI: Inspection: No distended Palpation (GI): Soft to palpation Neuro: General: patient oriented x3, moves all extremities and CN's II-XI intact bilaterally Extrem: General: Yes no pedal edema DS: Data Data Completed and Pending Labs on day of discharge: Laboratory Results - last 24 hr 02/27/24 05:26 WBC 5.6 RBC 4.21 L Hgb 13.2 L Hct 39.0 L MCV 92.6 MCH 31.4 MCHC 33.8 RDW 12.9 Plt Count 168 MPV 10.3 Immature Gran % (Auto) 0.2 Neut % (Auto) 65.3 Lymph % (Auto) 19.6 L George % (Auto) 12.8 H Eos % (Auto) 1.6 Baso % (Auto) 0.5 Lymph # (Auto) 1.1 L George # (Auto) 0.7 Eos # (Auto) 0.1 Baso # (Auto) 0.0 Abs Immat Gran (auto) 0.01 Absolute Neuts (auto) 3.6 Absolute Nucleated RBC 0.000 Nucleated RBC % (auto) 0.0 Sodium 142 Potassium 4.5 Chloride 108 Carbon Dioxide 25 Anion Gap 14 BUN 21 H Creatinine 0.97 Estim Creat Clear Calc 53.4 Estimated GFR > 60 Random Glucose 87 Estimat Average Glucose 108 Hemoglobin A1c % 5.4 Calcium 9.0 D Triglycerides 52 Cholesterol 130 LDL Cholesterol, Calc 88 HDL Cholesterol 32 L Discharge Plan Discharge Anticipated Discharge Date/Time: 02/27/24 13:35 Patient Disposition: Home Health Service Discharge Diagnosis: diplopia Referrals: Gomez Landers MD [Primary Care Provider] - 1 Week Kevin Garcia MD [Physician] - 1 Week Discharge Medications: New aspirin [Enteric Coated Aspirin] 81 mg tablet,delayed release (DR/EC) 81 mg PO DAILY 30 Days Qty: 30 0RF Continued pravastatin 40 mg tablet 40 mg PO BEDTIME tamsulosin 0.4 mg capsule 0.4 mg PO BEDTIME lorazepam 0.5 mg tablet 0.5 mg PO BEDTIME PRN (Reason: Sleep) Discharge Orders: Discharge Order (Routine); Ordered 02/27/24 Ordered By: Radha Fournier Activity on Discharge: As tolerated Stand Alone Forms: Patient Portal Discharge page Print Language: Icelandic Care Plan Goals: See below Health Concerns: double vision Plan of Treatment: Double vision due to possible microvascular ischemic disease resulting in TIA versus evolution of neuromuscular disorder MRI negative for stroke take 81 mg aspirin, continue baseline cholesterol medication Acetylcholine receptor modulating/blocking/binding labs pending at the time of discharge - Recommend outpatient follow-up with Neurology in 1-2 weeks to discuss results Recommend outpatient follow-up with optometry as scheduled Outpatient follow-up with PCP as scheduled Assessment: See discharge summary
[2024-03-12 13:28] LABS: Acetylcholine Recep Modulating 6
[2024-03-16 13:04] LABS: Acetylcholine Receptor Binding <0.30 nmol/L
[2024-03-18 22:59] LABS: Acetylcholine Recept. Blocking <15 (<15)
== END 2024-02-27 14:40 | disposition home health service (06) | DRG 74 ==
LOC: HO.ED 20:31 → HO.EDOVER 21:08 → HO.IMC 02-27 07:46
PROVIDERS: Physician Assistant; Student in an Organized Health Care Education/Training Program; Admitting Provider Student in an Organized Health Care Education/Training Program; Emergency Provider Emergency Medicine; PCP Internal Medicine; Visit Provider Physician Assistant Medical
DX: G70.9 Myoneural disorder, unspecified (principal); G45.9 Transient cerebral ischemic attack, unspecified; H53.2 Diplopia; E78.5 Hyperlipidemia, unspecified; N40.0 Benign prostatic hyperplasia without lower urinary tract symptoms; G47.00 Insomnia, unspecified; Z79.899 Other long term (current) drug therapy
CPT/HCPCS: 36415; 70450; 70496; 70498; 70551; 80048; 80053; 80061; 83036; 84484; 85025; 85610; 85730; 86041; 86042; 86043; 92610; 93005; 99285; J1650; Q9967

== ENCOUNTER → 2024-02-26 11:33 | Outpatient (BNV) | payer MEDICARE, SELFPAY | PROVIDERS: Admitting Provider Student in an Organized Health Care Education/Training Program; Emergency Provider Emergency Medicine; PCP Internal Medicine; Visit Provider Internal Medicine Cardiovascular Disease | DX: I49.9 Cardiac arrhythmia, unspecified (principal) | CPT/HCPCS: 93010 ==

== ENCOUNTER → 2024-02-26 20:36 | Outpatient (BNV) | payer MEDICARE, SELFPAY | PROVIDERS: Admitting Provider Student in an Organized Health Care Education/Training Program; Emergency Provider Emergency Medicine; PCP Internal Medicine; Visit Provider Student in an Organized Health Care Education/Training Program | DX: H53.2 Diplopia (principal) | CPT/HCPCS: 99223; 99239 ==

== ENCOUNTER → 2024-02-26 20:36 | Outpatient (BNV) | payer MEDICARE, SELFPAY | PROVIDERS: Admitting Provider Student in an Organized Health Care Education/Training Program; Emergency Provider Emergency Medicine; PCP Internal Medicine; Visit Provider Psychiatry & Neurology Neurology | DX: H53.2 Diplopia (principal) | CPT/HCPCS: 99221 ==